=== PATIENT | female | born 1940 | race Caucasian/White ===

== ENCOUNTER 2020-07-23 10:26 | Inpatient (IN) ==
[2020-07-23] MEDS ORDERED: SODIUM CHLORIDE 0.9% 1000ML 1,000 ML IV STA (10:34)
[2020-07-23] MEDS ORDERED: MoRPHine SULFATE 2 MG/ML CARP IV STA (10:34)
[2020-07-23] MEDS ORDERED: ONDANSETRON INJ 2 MG/ML 2 ML VIAL IV STA (10:34)
--- NOTE | 2020-07-23 11:12 | Emergency Department Note ---
History of Present Illness General Chief complaint: Fall Time Seen by Provider: 07/23/20 10:26 Source: patient and EMS Mode of arrival: EMS Limitations: other (She is very hard of hearing but answers questions appropriately) History of Present Illness Maximum Pain Intensity: 6 This patient comes in after falling on Thursday and. She lives independently alone and her son found her today. She is not sure why she fell she is complain of left hip pain. She does not think she hit her head. No chest pain shortness of breath or cough. No urinary symptoms. No fever or chills. She has not seen a doctor in many years and is on no medications. Home Medications Medication Instructions Recorded Confirmed Type No Known Home Medications 07/23/20 07/23/20 History Allergies Allergy/AdvReac Type Severity Reaction Status Date / Time No Known Allergies Allergy Unverified 07/23/20 11:32 Past Med/Surg History Medical History Anxiety Depression Hypertension Surgical History H/O: hysterectomy History of removal of both ovaries Social History Smoking Status: Never smoker Feels Safe at Home: Yes Immunizations: Past medical historyhistory of hypertension. She is on no m edications Social history-lives independently. does not smoke Review of Systems A total of 10 systems reviewed and were otherwise negative Physical Exam Vital Signs Vital Signs - 24 hr 07/23/20 10:43 07/23/20 11:49 07/23/20 11:50 Temperature 36.9 C Temperature Source Oral Pulse Rate 105 H 100 H Pulse Rate [Left Finger] 100 H Pulse Rhythm Regular Pulse Rhythm [Left Finger] Regular Pulse Strength [Left Finger] Normal Respiratory Rate 18 18 18 Respiratory Effort / Characteristics Non-Labored Spontaneous Non-Labored Respiratory Depth Normal Normal Respiratory Pattern Regular Blood Pressure 156/112 H Blood Pressure [Right Arm] 148/76 H Blood Pressure Mean 126 Blood Pressure Mean [Right Arm] 100 Blood Pressure Position [Right Arm] Lying Pulse Oximetry 96 97 97 Oxygen Delivery Method Room Air Room Air Room Air Sepsis Recent Fever Within 48 Hours No Sepsis New/Unexplained Change in Mental Status No Sepsis Action Taken by Nursing No Action Required 07/23/20 13:00 07/23/20 14:19 Temperature Temperature Source Pulse Rate Pulse Rate [Left Finger] 98 H 93 H Pulse Rhythm Pulse Rhythm [Left Finger] Regular Regular Pulse Strength [Left Finger] Normal Respiratory Rate 13 14 Respiratory Effort / Characteristics Non-Labored Respiratory Depth Normal Normal Respiratory Pattern Blood Pressure Blood Pressure [Right Arm] 148/66 H Blood Pressure Mean Blood Pressure Mean [Right Arm] 93 Blood Pressure Position [Right Arm] Pulse Oximetry 97 97 Oxygen Delivery Method Room Air Room Air Sepsis Recent Fever Within 48 Hours Sepsis New/Unexplained Change in Mental Status Sepsis Action Taken by Nursing General: Well developed well nourished older female hard of hearing but appears in no acute distress, breathing comfortably on room air. Normal speech HEENT: Normal cephalic atraumatic. Pupils are equal round and reactive to light. Extraocular movements are intact. Oropharynx is pink with moist mucous membranes. No swelling of the mouth lips or tongue. Neck: Supple with a midline trachea. No meningeal signs or stiffness, no JVD or bruits. No Stridor. Chest: Clear to auscultation bilaterally. No wheezes or rhonchi. No increased work of breathing. Heart: Regular rate and rhythm without murmurs or gallops. Abdomen: Soft nontender, nondistended without rebound guarding or rigidity. Extremities: No cyanosis clubbing or edema. No calf tenderness or assymetry. The left hip is very tender with any movement and there may be slight shortening of the lower extremity. Spine/Back. Non tender to palpation. No CVA tenderness Skin: Good turgor without rashes. Neurologic exam: Cranial nerves two through 12 are intact. Motor and sensation are intact and symmetrical throughout. Course Administered Medications Discontinued Medications Sodium Chloride (Nss 1000ml) 1,000 mls @ 999 mls/hr IV .Q1H1M STA Stop: 07/23/20 11:34 Last Infusion: 07/23/20 12:36 Dose: 0 mls/hr Documented by: [id number] Admin: 07/23/20 11:13 Dose: 999 mls/hr Documented by: [id number] Morphine Sulfate (Morphine Sulfate 2 Mg/Ml Carp) 2 mg IV NOW STA Stop: 07/23/20 10:35 Last Admin: 07/23/20 11:13 Dose: 2 mg Documented by: [id number] Ondansetron HCl (Ondansetron Inj 2 Mg/Ml 2 Ml Vial) 4 mg IV NOW STA Stop: 07/23/20 10:35 Last Admin: 07/23/20 11:13 Dose: 4 mg Documented by: [id number] Medical Decision Making Differential Diagnosis Hip fracture, hip dislocation, contusion, arrhythmia, sepsis, UTI, rhabdo, elec trolyte or metabolic abnormality, dehydration, CVA, trauma Medical Records Attestation: I reviewed the patient's medical records. Home Medications Current Medication List: was personally reviewed by me Laboratory Data Attestation: I reviewed the patient's lab results. Result diagrams: 07/23/20 11:26 07/23/20 11:26 Lab Results 07/23/20 07/23/20 07/23/20 Range/Units 10:57 11:26 11:26 WBC 11.41 H (4.8-10.8) K/uL RBC 4.52 (4.2-5.4) M/uL Hgb 13.8 (12.0-16.0) g/dL Hct 39.5 (37-47) % MCV 87.4 (80-100) fL MCH 30.5 (25-34) pg MCHC 34.9 (32-36) g/dL RDW Std Deviation 42.5 (36.4-46.3) fL RDW Coeff of Praveen 13.3 (11.5-14.5) % Plt Count 169 (130-400) K/uL MPV 10.5 H (7.4-10.4) fL Immature Gran % (Auto) 0.2 % Neut % (Auto) 84.6 % Lymph % (Auto) 8.2 % Luna % (Auto) 6.7 % Eos % (Auto) 0.2 % Baso % (Auto) 0.1 % Neut # (Auto) 9.67 H (1.4-6.5) K/uL Lymph # (Auto) 0.93 L (1.2-3.4) K/uL Luna # (Auto) 0.76 H (0.11-0.59) K/uL Eos # (Auto) 0.02 (0-0.5) K/uL Baso # (Auto) 0.01 (0-0.2) K/uL Immature Gran # (Auto) 0.02 (0.00-0.02) K/uL Sodium 142 (136-145) mmol/L Potassium 4.2 (3.5-5.1) mmol/L Chloride 110 H (98-107) mmol/L Carbon Dioxide 26 (21-32) mmol/L Anion Gap 6.0 (3-11) BUN 59 H (7-18) mg/dl Creatinine 1.38 H (0.6-1.2) mg/dl Est Cr Clr Drug Dosing Not Reportable Est GFR ( Amer) 41.2 Est GFR (Non-Af Amer) 35.5 BUN/Creatinine Ratio 42.6 H (10-20) Glucose 110 H (70-99) mg/dl Calcium 8.6 (8.5-10.1) mg/dl Total Bilirubin 0.7 (0.2-1) mg/dl AST 230 H (15-37) U/L ALT 77 (12-78) U/L Alkaline Phosphatase 89 (45-117) U/L Total Creatine Kinase 7302 H (26-192) U/L CK-MB (CK-2) 87.5 H (0.5-3.6) ng/ml CK/CKMB % Calc 1.2 (0-3.0) Troponin I 0.077 H* (0-0.045) ng/ml Total Protein 6.5 (6.4-8.2) gm/dl Albumin 3.0 L (3.4-5.0) gm/dl Globulin 3.5 (2.5-4.0) gm/dl Albumin/Globulin Ratio 0.9 (0.9-2) Lipase 147 (73-393) U/L Urine Color [place] Urine Appearance Cloudy A (Clear) Urine pH 5.5 (4.5-7.5) Ur Specific [place] 1.020 (1.000-1.030) Urine Protein 1+ H (Negative) Urine Glucose (UA) Negative (Negative) Urine Ketones 1+ H (Negative) Urine Blood 3+ H (Negative) Urine Nitrite Negative (Negative) Urine Bilirubin Negative (Negative) Urine Urobilinogen Negative (Negative) Ur Leukocyte Esterase 1+ H (Negative) Urine WBC (Auto) 10-30 H (0-5) /hpf Urine RBC (Auto) 0-4 (0-4) /hpf U Hyaline Cast (Auto) 0 (0-5) /lpf U Epithel Cells (Auto) 5-10 H (0-5) /lpf Urine Bacteria (Auto) 4+ H (Negative) COVID-19 Eval Order SARS-CoV-2, RNA, NAAT (NEGATIVE) 07/23/20 07/23/20 Range/Units 14:10 14:10 WBC (4.8-10.8) K/uL RBC (4.2-5.4) M/uL Hgb (12.0-16.0) g/dL Hct (37-47) % MCV (80-100) fL MCH (25-34) pg MCHC (32-36) g/dL RDW Std Deviation (36.4-46.3) fL RDW Coeff of Praveen (11.5-14.5) % Plt Count (130-400) K/uL MPV (7.4-10.4) fL Immature Gran % (Auto) % Neut % (Auto) % Lymph % (Auto) % Luna % (Auto) % Eos % (Auto) % Baso % (Auto) % Neut # (Auto) (1.4-6.5) K/uL Lymph # (Auto) (1.2-3.4) K/uL Luna # (Auto) (0.11-0.59) K/uL Eos # (Auto) (0-0.5) K/uL Baso # (Auto) (0-0.2) K/uL Immature Gran # (Auto) (0.00-0.02) K/uL Sodium (136-145) mmol/L Potassium (3.5-5.1) mmol/L Chloride (98-107) mmol/L Carbon Dioxide (21-32) mmol/L Anion Gap (3-11) BUN (7-18) mg/dl Creatinine (0.6-1.2) mg/dl Est Cr Clr Drug Dosing Est GFR ( Amer) Est GFR (Non-Af Amer) BUN/Creatinine Ratio (10-20) Glucose (70-99) mg/dl Calcium (8.5-10.1) mg/dl Total Bilirubin (0.2-1) mg/dl AST (15-37) U/L ALT (12-78) U/L Alkaline Phosphatase (45-117) U/L Total Creatine Kinase (26-192) U/L CK-MB (CK-2) (0.5-3.6) ng/ml CK/CKMB % Calc (0-3.0) Troponin I (0-0.045) ng/ml Total Protein (6.4-8.2) gm/dl Albumin (3.4-5.0) gm/dl Globulin (2.5-4.0) gm/dl Albumin/Globulin Ratio (0.9-2) Lipase (73-393) U/L Urine Color Urine Appearance (Clear) Urine pH (4.5-7.5) Ur Specific [place] (1.000-1.030) Urine Protein (Negative) Urine Glucose (UA) (Negative) Urine Ketones (Negative) Urine Blood (Negative) Urine Nitrite (Negative) Urine Bilirubin (Negative) Urine Urobilinogen (Negative) Ur Leukocyte Esterase (Negative) Urine WBC (Auto) (0-5) /hpf Urine RBC (Auto) (0-4) /hpf U Hyaline Cast (Auto) (0-5) /lpf U Epithel Cells (Auto) (0-5) /lpf Urine Bacteria (Auto) (Negative) [facility], RNA, NAAT NEGATIVE (NEGATIVE) Imaging Data Attestation: I personally reviewed and interpreted this imaging study as follows: My Impression: Left hip : There is an impacted subcapital left hip fracture Chest x-rayno acute infiltrate, failure, pneumothorax seen Radiologist's Impression: SINGLE VIEW PELVIS; 2 VIEWS LEFT HIP CLINICAL HISTORY: Fall. Left hip injury. FINDINGS: An AP supine view of the pelvis with AP and crosstable lateral views of the left hip are obtained. No prior studies are available for comparison at the time of dictation. The skeletal structures are osteopenic. There is an impacted and mildly displaced subcapital fracture of the left femur. Overlying soft tissue edema is noted. No additional fracture is seen involving the right hip or the bony pelvis. Mild to moderate degenerative joint space narrowing is present in both hips. There is sclerotic change seen in the sacroiliac joints. Phleboliths are noted in the pelvis. IMPRESSION: Impacted subcapital left femoral fracture. SINGLE VIEW CHEST CLINICAL HISTORY: Atypical chest pain. Left hip fracture. FINDINGS: An AP, portable, supine chest radiograph is compared to study dated 02/02/2015. The heart is top normal for projection noting atherosclerotic calcification of the thoracic aorta. The pulmonary vasculature is noncongested. Chronic interstitial thickening is similar to previous. No airspace co nsolidation or large pleural effusion is identified. No pneumothorax is seen. The skeletal structures are osteopenic. The bony thorax is grossly intact. IMPRESSION: No acute cardiopulmonary abnormality. ECG Data Attestation: I personally reviewed and interpreted this ECG as follows: Indication: + weakness Rate (beats per minute): 109 Rhythm: + sinus tachycardia and + other (Poor baseline) ECG Intervals/blocks: + Normal QRS, + Normal QT and + Normal PA ECG [place]: + Normal ECG ST segments: + Nonspecific ST abnormalities ECG Findings: no PACs and no PVCs Comparison ECG Date: no prior available MDM Narrative .This patient comes in as described above. She was placed in room C4. She is here for treatment and evaluation of a mechanical fall she was on the ground g round for a prolonged period of time and therefore is at risk for rhabdo. She is complaining hip pain. IV access was tablet she was given morphine 2 mg IV and Zofran 4 mg IV for pain and nausea management. she was hydrated with IV normal saline. EKG was obtained. she was placed on a hospital monitor. X-rays were obtained of the chest and hip. Urinalysis was also obtained and a Mora catheter was placed, given concern for possible hip fracture and inability to get out of bed. X-ray does confirm a hip fracture on the left. Chest x-ray was unremarkable. EKG shows some sinus tachycardia. Her BUN and creatinine are mildly elevated consistent with dehydration. Potassium is not significantly elevated. Her CK is elevated at just over 7000 and consistent with rhabdomyolysis from falling and laying on the floor. Troponin is mildly elevated which is also probably rhabdo she has no chest pain and EKG does not suggest acute STEMI. I do think she needs to be admitted for further IV hydrat ion. She was given a liter IV normal saline bolus in the ER and I ordered a second liter IV normal saline for hydration and treatment of the rhabdo. She will also need orthopedic consultation and management of her hip fracture as well. I have consulted the [facility] hospitalist and she will be seen in the ER and admitted/observed for these measures Continuous cardiac monitoring: Order was placed in EMR for continuous cardiac monitoring. She was noted to be in sinus tachycardia at a rate of 100. Impression & Plan Closed hip fracture, Fall, Rhabdomyolysis, Acute dehydration Discharge Plan Visit Data Chief Complaint: Fall ED Provider: [facility] Discharge Problem: Closed hip fracture, Fall, Rhabdomyolysis, Acute dehydration Forms Stand Alone Forms: [facility] Prescriptions Prescriptions: No Action No Known Home Medications RF: 0 Discharge Problem: Closed hip fracture Qualifiers: Encounter type: initial encounter Laterality: left Qualified Code(s): S72.002A - Fracture of unspecified part of neck of left femur, initial encounter for closed fracture Fall Qualifiers: Encounter type: initial encounter Qualified Code(s): W19.XXXA - Unspecified fall, initial encounter Rhabdomyolysis Qualifiers: Rhabdomyolysis type: traumatic Encounter type: initial encounter Qualified Code(s): T79.6XXA - Traumatic ischemia of muscle, initial encounter
--- NOTE | 2020-07-23 11:23 | XRay Report ---
SINGLE VIEW CHEST CLINICAL HISTORY: Atypical chest pain. Left hip fracture. FINDINGS: An AP, portable, supine chest radiograph is compared to study dated 02/02/2015. The heart is top normal for projection noting atherosclerotic calcification of the thoracic aorta. The pulmonary vasculature is noncongested. Chronic interstitial thickening is similar to previous. No airspace cons olidation or large pleural effusion is identified. No pneumothorax is seen. The skeletal structures a re osteopenic. The bony thorax is grossly intact. IMPRESSION: No acute cardiopulmonary abnormality. ACT 112: Negative or not required by law. Electronically signed by: Pradip Duran M.D. 07/23/2020 11:22 AM
--- NOTE | 2020-07-23 11:24 | XRay Report ---
SINGLE VIEW PELVIS; 2 VIEWS LEFT HIP CLINICAL HISTORY: Fall. Left hip injury. FINDINGS: An AP supine view of the pelvis with AP and crosstable lateral views of the left hip are ob tained. No prior studies are available for comparison at the time of dictation. The skeletal structur es are osteopenic. There is an impacted and mildly displaced subcapital fracture of the left femur. O verlying soft tissue edema is noted. No additional fracture is seen involving the right hip or the [place] pelvis. Mild to moderate degenerative joint space narrowing is present in both hips. There is scle rotic change seen in the sacroiliac joints. Phleboliths are noted in the pelvis. IMPRESSION: Impacted subcapital left femoral fracture. Electronically signed by: Pradip Duran M.D. 07/23/2020 11:23 AM
[2020-07-23 11:26] LABS: Appearance Urine Cloudy (Clear); Bacteria Urine Automated 4+ (Negative); Bilirubin Urine Negative (Negative); Blood Urine 3+ (Negative); Color Urine Orange; Glucose Urine UA Negative (Negative); Ketones Urine 1+ (Negative); Leukocyte Esterase Urine 1+ (Negative); Nitrite Urine Negative (Negative); Protein Urine 1+ (Negative); Urobilinogen Urine Negative (Negative); pH Urine 5.5 (4.5-7.5)
[2020-07-23 11:39] LABS: Basophils # (auto) 0.01 K/uL (0-0.2); Basophils % (auto) 0.1 %; Eosinophils # (auto) 0.02 K/uL (0-0.5); Eosinophils % (auto) 0.2 %; Hematocrit (blood only) 39.5 % (37-47); Hemoglobin 13.8 g/dL (12.0-16.0); Immature Granulocytes # (auto) 0.02 K/uL (0.00-0.02); Immature Granulocytes % (auto) 0.2 %; Lymphocytes # (auto) 0.93 K/uL (1.2-3.4); Lymphocytes % (auto) 8.2 %; Mean Corpuscular Hemoglobin 30.5 pg (25-34); Mean Corpuscular Hgb Conc 34.9 g/dL (32-36); Mean Corpuscular Volume 87.4 fL (80-100); Mean Platelet Volume 10.5 fL (7.4-10.4); Monocytes # (auto) 0.76 K/uL (0.11-0.59); Monocytes % (auto) 6.7 %; Neutrophils # (auto) 9.67 K/uL (1.4-6.5); Neutrophils % (auto) 84.6 %; Platelet Count 169 K/uL (130-400); RDW Coefficient of Variation 13.3 % (11.5-14.5); RDW Standard Deviation 42.5 fL (36.4-46.3); Red Blood Count 4.52 M/uL (4.2-5.4); White Blood Count 11.41 K/uL (4.8-10.8)
[2020-07-23 11:47] LABS: RBC Urine Automated 0-4 /hpf (0-4)
[2020-07-23 11:48] LABS: Cast Urine Automated 0 /lpf (0-5)
[2020-07-23 11:57] LABS: Alanine Aminotransferase 77 U/L (12-78); Aspartate Aminotransferase 230 U/L (15-37); BUN Creatinine Ratio 42.6 (10-20); Blood Urea Nitrogen 59 mg/dl (7-18); Calcium 8.6 mg/dl (8.5-10.1); Carbon Dioxide 26 mmol/L (21-32); Chloride 110 mmol/L (98-107); Est GFR (African American) 41.2; Est GFR (Non-African American) 35.5; Glucose 110 mg/dl (70-99); Lipase 147 U/L (73-393); Potassium 4.2 mmol/L (3.5-5.1); Sodium 142 mmol/L (136-145)
[2020-07-23 12:50] LABS: Albumin Globulin Ratio 0.9 (0.9-2); Alkaline Phosphatase 89 U/L (45-117); Bilirubin,Total 0.7 mg/dl (0.2-1); Creatine Kinase 7302 U/L (26-192); Creatine Kinase MB 87.5 ng/ml (0.5-3.6); Globulin 3.5 gm/dl (2.5-4.0); Total Protein 6.5 gm/dl (6.4-8.2); Troponin I 0.077 ng/ml (0-0.045)
[2020-07-23] MEDS ORDERED: SODIUM CHLORIDE 0.9% 1000ML 1,000 ML IV ONE (13:14)
--- NOTE | 2020-07-23 13:28 | History & Physical Report ---
Date of Service July 23, 2020 Assessment & Plan (1) Pre-op evaluation: 80 yo F with no active cardiac conditions and good functional capacity, able to achieve 4-10 METS on average. EKG reveals sinus rhythm and no changes from prior in 2014. She ambulates independently at baseline, and lives alone. Without surgery to fix her hip, this would have a significant negative impact on her life. She does have acute renal failure and nontraumatic rhabdomyolysis from her prolonged time on the floor over the weekend. Would recommend this be resolved/improved prior to surgery (24-48 hrs). Would recommend to move forward with orthopedic surgery as planned with acceptable risk and no further cardiac workup. (2) Closed left hip fracture: 2/2 mechanical fall. Ortho consulted for consideration of surgical fix. Pain control and supportive care. (3) Acute renal failure: In setting of rhabdo and poor PO intake while on the ground for two days. She has clinical dehydration on exam. Cont with rehydration efforts overnight, NSS @ 150cc/hr. BMP in am. Replete eletrolytes as needed. (4) Non-traumatic rhabdomyolysis: Trend CK in am with NSS running. (5) DVT prophylaxis: Lovenox Full code as discussed with her on admission Dispo-uncertain at this time. Wendy Oakley DO [facility] Hospitalist History of Present Illness Chief Complaint: found down at home by son after a fall Primary Care Provider: Guido Smart MD 80 yo F found down on floor by her son today (Thu). The patient reports that she tripped and fell on Thursday. She has fractured her left hip and was not able to get up or call for help; she lives alone and functions independently at baseline. She denies having hit her head. She reports having crawled from the laundry room floor where she fell into the kitchen and this took her all day yesterday to accomplish. She reports pain is manageable in her hip unless she is moving around. She reports that she was taking medication for HTN and depression a few years ago but stopped these secondary to cost. She denies taking any medications at this time. She has no known h/o cardiac disease or h/o stroke. She has no known h/o diabetes and is not taking insulin. She reports showering herself, cleaning her own home including vaccuming and laundry on a regular basis and cooking for herself. She is independent. She denies any issues with chest pain or worsening shortness of breath when performing these tasks. Allergies Allergy/AdvReac Type Severity Reaction Status Date / Time No Known Allergies Allergy Unverified 07/23/20 11:32 Home Medications Medication Instructions Recorded Confirmed Type No Known Home Medications 07/23/20 07/23/20 History Past Med/Surg History Medical History Anxiety Depression Hypertension Surgical History H/O: hysterectomy History of removal of both ovaries Family History Other Family history non-contributory Social History Smoking Status: Never smoker Hx Alcohol Use: No Hx Substance Use: No Preferred Language: Uzbek Communication Ability: Effective Breaker Machine Tender Required: No Beliefs That Will Affect Care: None Current Living Situation: Alone Current Living Situation Comment: son, lives on same property and checks on her Other Information That Helps Us Care for You: No Feels Safe at Home: Yes Safety Concerns: Feels Safe At This Time Assistive Devices: Denture - Upper, Denture - Lower and Glasses Review of Systems Review of Systems: All systems reviewed & are unremarkable except as noted in HPI & below Physical Exam Physical Exam: CONSTITUTIONAL: WNWD, vitals as above, generally well-appearing EYES: EOMI bilaterally, PERRL, normal conjunctivae, no scleral icterus ENT: external ear and nose normal, partial dentures in place, mucous membranes are dry. NECK: trachea midline RESPIRATORY: clear to auscultation bilaterally, no crackles, rales or wheezes, normal respiratory effort CARDIOVASCULAR: regular rate and rhythm, S1 and 2 heard without murmurs, gallops or rubs, no JVD, no peripheral edema GASTROINTESTINAL: soft, nontender, nondistended, no guarding. MUSCULOSKELETAL: she can wiggle her toes, limited leg strength testing 2/2 pain from fracture. UE strength 5/5 throughout. SKIN: warm and dry, no bruising noted. NEUROLOGIC: CN 2-12 grossly intact, no sensory deficit, normal cognition, normal speech, no gross focal deficits. PSYCHIATRIC: alert cooperative and answering all questions appropriately. Results & Data Results & Data ([facility]) Vital Signs (Past 12 Hours) Vital Signs Temp Pulse Pulse Resp BP BP Pulse Ox 07/23/20 11:50 100 H 18 148/76 H 97 07/23/20 11:49 100 H 18 97 07/23/20 10:43 36.9 C 105 H 18 156/112 H 96 Laboratory Results Short CBC 07/23/20 07/23/20 07/23/20 Range/Units 10:57 11:26 11:26 WBC 11.41 H (4.8-10.8) K/uL RBC 4.52 (4.2-5.4) M/uL Hgb 13.8 (12.0-16.0) g/dL Hct 39.5 (37-47) % MCV 87.4 (80-100) fL MCH 30.5 (25-34) pg MCHC 34.9 (32-36) g/dL RDW Std Deviation 42.5 (36.4-46.3) fL RDW Coeff of Praveen 13.3 (11.5-14.5) % Plt Count 169 (130-400) K/uL MPV 10.5 H (7.4-10.4) fL Immature Gran % (Auto) 0.2 % Neut % (Auto) 84.6 % Lymph % (Auto) 8.2 % [place] % (Auto) 6.7 % Eos % (Auto) 0.2 % Baso % (Auto) 0.1 % Neut # (Auto) 9.67 H (1.4-6.5) K/uL Lymph # (Auto) 0.93 L (1.2-3.4) K/uL [place] # (Auto) 0.76 H (0.11-0.59) K/uL Eos # (Auto) 0.02 (0-0.5) K/uL Baso # (Auto) 0.01 (0-0.2) K/uL Immature Gran # (Auto) 0.02 (0.00-0.02) K/uL Sodium 142 (136-145) mmol/L Potassium 4.2 (3.5-5.1) mmol/L Chloride 110 H (98-107) mmol/L Carbon Dioxide 26 (21-32) mmol/L Anion Gap 6.0 (3-11) BUN 59 H (7-18) mg/dl Creatinine 1.38 H (0.6-1.2) mg/dl Est Cr Clr Drug Dosing Not Reportable Est GFR ( Amer) 41.2 Est GFR (Non-Af Amer) 35.5 BUN/Creatinine Ratio 42.6 H (10-20) Glucose 110 H (70-99) mg/dl Calcium 8.6 (8.5-10.1) mg/dl Total Bilirubin 0.7 (0.2-1) mg/dl AST 230 H (15-37) U/L ALT 77 (12-78) U/L Alkaline Phosphatase 89 (45-117) U/L Total Creatine Kinase 7302 H (26-192) U/L CK-MB (CK-2) 87.5 H (0.5-3.6) ng/ml CK/CKMB % Calc 1.2 (0-3.0) Troponin I 0.077 H* (0-0.045) ng/ml Total Protein 6.5 (6.4-8.2) gm/dl Albumin 3.0 L (3.4-5.0) gm/dl Globulin 3.5 (2.5-4.0) gm/dl Albumin/Globulin Ratio 0.9 (0.9-2) Lipase 147 (73-393) U/L Urine Color [place] Urine Appearance Cloudy A (Clear) Urine pH 5.5 (4.5-7.5) Ur Specific [place] 1.020 (1.000-1.030) Urine Protein 1+ H (Negative) Urine Glucose (UA) Negative (Negative) Urine Ketones 1+ H (Negative) Urine Blood 3+ H (Negative) Urine Nitrite Negative (Negative) Urine Bilirubin Negative (Negative) Urine Urobilinogen Negative (Negative) Ur Leukocyte Esterase 1+ H (Negative) Urine WBC (Auto) 10-30 H (0-5) /hpf Urine RBC (Auto) 0-4 (0-4) /hpf U Hyaline Cast (Auto) 0 (0-5) /lpf U Epithel Cells (Auto) 5-10 H (0-5) /lpf Urine Bacteria (Auto) 4+ H (Negative) BMP 07/23/20 11:26 Sodium 142 Potassium 4.2 Chloride 110 H Carbon Dioxide 26 BUN 59 H Creatinine 1.38 H Glucose 110 H Calcium 8.6 Cardiac Enzymes 07/23/20 Range/Units 11:26 Total Creatine Kinase 7302 H (26-192) U/L CK-MB (CK-2) 87.5 H (0.5-3.6) ng/ml Troponin I 0.077 H* (0-0.045) ng/ml Liver Function 07/23/20 Range/Units 11:26 Total Bilirubin 0.7 (0.2-1) mg/dl AST 230 H (15-37) U/L ALT 77 (12-78) U/L Alkaline Phosphatase 89 (45-117) U/L Albumin 3.0 L (3.4-5.0) gm/dl Urine 07/23/20 Range/Units 10:57 Urine Color [place] Urine Appearance Cloudy A (Clear) Urine pH 5.5 (4.5-7.5) Ur Specific [place] 1.020 (1.000-1.030) Urine Protein 1+ H (Negative) Urine Glucose (UA) Negative (Negative) Diagnostic Findings [facility], [id number] XRay Report Patient: JOVANNA ODOM Date: 07/23/20MR#: [id number]: [address]Acct ID:[id number]: [id number] [facility] Date: 1940[facility] Zip: [place], [place] [address]Gri: 80Location: EDSex: FRoom/Bed:Att Phy:Diagnosis: FALLPri Phy: KATHERINENOService Date: 07/23/20Fa Phy:Interpreting Phy: Pradip Duran MDAdmit Phy: Ordering Phy: Bay Barrow M.D. cc: ~ SINGLE VIEW PELVIS; 2 VIEWS LEFT HIP CLINICAL HISTORY: Fall. Left hip injury. FINDINGS: An AP supine view of the pelvis with AP and crosstable lateral views of the left hip are obtained. No prior studies are available for comparison at the time of dictation. The skeletal structures are osteopenic. There is an impacted and mildly displaced subcapital fracture of the left femur. Overlying soft tissue edema is noted. No additional fracture is seen involving the right hip or the bony pelvis. Mild to moderate degenerative joint space narrowing is present in both hips. There is sclerotic change seen in the sacroiliac joints. Phleboliths are noted in the pelvis. IMPRESSION: Impacted subcapital left femoral fracture. Electronically signed by: Pradip Duran M.D. 07/23/2020 11:23 AM Dictated: 07/23/201121Transcribed: 07/23/201121 [facility], [phone] XRay Report Patient: JOVANNA ODOM Date: 07/23/20MR#: [id number]: [address]Acct ID:[id number]: [id number] [facility] Date: 1940[facility] Zip: [place], [place] [address]Sqg: 80Location: EDSex: FRoom/Bed:Att Phy:Diagnosis: FALLPri Phy: PCP,NOService Date: 07/23/20Fa Phy:Interpreting Phy: Pradip Duran MDAdmit Phy: Ordering Phy: Bay Barrow M.D. cc: ~ SINGLE VIEW CHEST CLINICAL HISTORY: Atypical chest pain. Left hip fracture. FINDINGS: An AP, portable, supine chest radiograph is compared to study dated 02/02/2015. The heart is top normal for projection noting atherosclerotic calcification of the thoracic aorta. The pulmonary vasculature is noncongested. Chronic interstitial thickening is similar to previous. No airspace consolidation or large pleural effusion is identified. No pneumothorax is seen. The skeletal structures are osteopenic. The bony thorax is grossly intact. IMPRESSION: No acute cardiopulmonary abnormality. ACT 112: Negative or not required by law. Electronically signed by: Pradip Duran M.D. 07/23/2020 11:22 AM Dictated: 07/23/201120Transcribed: 07/23/201120
[2020-07-23] MEDS ORDERED: NALOXONE HCL 0.4 MG/1 ML VIAL/CARP IV PRN (17:28)
[2020-07-23] MEDS ORDERED: bisacodyL 10 MG SUPP PR PRN (17:28)
[2020-07-23] MEDS ORDERED: ACETAMINOPHEN 325 MG TAB PO PRN (17:28)
[2020-07-23] MEDS ORDERED: POLYETHYLENE (MIRALAX) 17 GM PACK PO PRN (17:28)
[2020-07-23] MEDS ORDERED: MAGNESIUM HYDROXIDE SUSP 30 ML UDC PO PRN (17:28)
[2020-07-23] MEDS ORDERED: traMADol HCL 50 MG TABLET PO PRN (17:28)
[2020-07-23] MEDS: oxyCODONE HCL IR 5 MG TAB (IMMEDIATE RELEASE) PO PRN (18:17)
[2020-07-23] MEDS: SODIUM CHLORIDE 0.9% 1000ML 1,000 ML IV SCH (18:18)
--- NOTE | 2020-07-23 20:04 | Anesthesiology Consultation ---
Date of Service July 23, 2020 Assessment & Plan (1) Encounter for pre-operative examination: Chart Review Chart Review: Acceptable Risk for Surgery and Patient NOT seen in Pre Admission Testing Trend troponins. Consults Requested none History Height/Weight Height: 5 ft 4 in Weight: 64.8 kg Allergies Allergy/AdvReac Type Severity Reaction Status Date / Time No Known Allergies Allergy Unverified 07/23/20 11:32 Medications Home Medications Medication Instructions Recorded Confirmed Last Taken No Known Home Medications 07/23/20 07/23/20 Unknown Active Medications Generic Name Dose Route Start Last Admin Trade Name Freq PRN Reason Stop Dose Admin Sodium Chloride 1,000 mls @ 150 mls/hr 07/23/20 17:28 07/23/20 18:18 Nss 1000ml IV 07/24/20 06:47 150 mls/hr .[id number] RUSS Administration Oxycodone HCl 5 mg 07/23/20 17:28 07/23/20 18:17 Oxycodone Hcl Ir 5 Mg Tab (Immediate Release) PO 08/06/20 17:27 5 mg Q4H PRN Administration SEVERE Pain (7, 8, 9, 10) Past Medical History Medical History Anxiety Depression Hypertension Per ER physician 07/23/2020: Troponin is mildly elevated which is also probably rhabdo she has no chest pain and EKG does not suggest acute STEMI. Past Surgical History Surgical History H/O: hysterectomy History of removal of both ovaries Social History Smoking Status: Never smoker Hx Alcohol Use: No Hx Substance Use: No Physical Exam Vital Signs Last Vital Signs Temp 36.6 C 07/23/20 19:00 Pulse 110 H 07/23/20 19:00 Resp 20 07/23/20 19:00 BP 130/75 07/23/20 19:00 Pulse Ox 99 07/23/20 19:00 Testing Laboratory Results 07/23/20 11:26 07/23/20 11:26 Urine Color [place] 07/23/20 10:57 Urine Appearance Cloudy (Clear) A 07/23/20 10:57 Urine pH 5.5 (4.5-7.5) 07/23/20 10:57 Ur Specific [place] 1.020 (1.000-1.030) 07/23/20 10:57 Urine Protein 1+ (Negative) H 07/23/20 10:57 Urine Glucose (UA) Negative (Negative) 07/23/20 10:57 Urine Ketones 1+ (Negative) H 07/23/20 10:57 Urine Nitrite Negative (Negative) 07/23/20 10:57 Ur Leukocyte Esterase 1+ (Negative) H 07/23/20 10:57 Urine WBC (Auto) 10-30 /hpf (0-5) H 07/23/20 10:57 Urine RBC (Auto) 0-4 /hpf (0-4) 07/23/20 10:57 U Hyaline Cast (Auto) 0 /lpf (0-5) 07/23/20 10:57 U Epithel Cells (Auto) 5-10 /lpf (0-5) H 07/23/20 10:57 Urine Bacteria (Auto) 4+ (Negative) H 07/23/20 10:57 covid neg 07/23/20. Laboratory Tests 07/23/20 11:26 Troponin I 0.077 H* Electrocardiogram Date: 07/23/20 ST. HR 109. Occasional PVC's. Biatrial enlargement. LAD. Cannot r/o anterior infarct, age undetermined. ST and T wave abnormality, consider lateral ischemia.
[2020-07-23] MEDS: DOCUSATE SODIUM/SENNA 50/8.6MG TAB PO SCH (20:55)
[2020-07-24] MEDS: SODIUM CHLORIDE 0.9% 1000ML 1,000 ML IV SCH ×2 (00:45→10:15)
[2020-07-24] MEDS ORDERED: ceFAZolin 2000MG 2,000 MG/15 ML SYR IV SCH (06:00)
[2020-07-24 06:16] LABS: Hematocrit (blood only) 36.2 % (37-47); Hemoglobin 12.2 g/dL (12.0-16.0); Mean Corpuscular Hemoglobin 29.8 pg (25-34); Mean Corpuscular Hgb Conc 33.7 g/dL (32-36); Mean Corpuscular Volume 88.5 fL (80-100); Mean Platelet Volume 10.6 fL (7.4-10.4); Platelet Count 161 K/uL (130-400); RDW Coefficient of Variation 13.4 % (11.5-14.5); Red Blood Count 4.09 M/uL (4.2-5.4)
--- NOTE | 2020-07-24 06:28 | Electrocardiogram Report ---
Test Reason : Blood Pressure : / mmHG Vent. Rate : 102 BPM Atrial Rate : 102 BPM P-R Int : 132 ms QRS Dur : 058 ms QT Int : 362 ms P-R-T Axes : 064 -30 160 degrees QTc Int : 472 ms Poor data quality, interpretation may be adversely affected Sinus tachycardia Biatrial enlargement Left axis deviation Low voltage QRS Cannot rule out Anterior infarct , age undetermined Abnormal ECG When compared with ECG of 04-FEB-2015 13:09, Vent. rate has increased by 30 bpm T wave inversion now evident in Anterior leads QT has lengthened Confirmed by Isiah Presley ([id number]) on 07/24/2020 6:28:05 AM Referred By: REFERRED SELF Confirmed By:Isiah Presley
[2020-07-24 06:29] LABS: Prothrombin Time 9.7 Seconds (9.0-12.0)
[2020-07-24 06:51] LABS: BUN Creatinine Ratio 50.5 (10-20); Calcium 8.3 mg/dl (8.5-10.1); Creatinine Clr Calc Pharmacy 46.2 ml/min; Est GFR (African American) 78.4; Est GFR (Non-African American) 67.6; Potassium 3.6 mmol/L (3.5-5.1)
[2020-07-24 07:04] LABS: Troponin I 0.079 ng/ml (0-0.045)
[2020-07-24] MEDS: ENOXAPARIN INJ 40 MG/0.4 ML SYR SQ SCH (07:17)
--- NOTE | 2020-07-24 10:08 | XRay Report ---
XR femur LT 2V routine CLINICAL HISTORY: Left hip fracture. Left leg pain. COMPARISON STUDY: Left hip 07/23/2020. FINDINGS: Redemonstration of the slightly displaced subcapital left femoral neck fracture. This demon strates up to 7 mm of superior displacement. No dislocation. The patient has pelvic bones are intact. No fractures within the mid to distal left femur. IMPRESSION: 1. Redemonstration of the slightly displaced subcapital left femoral neck fracture. 2. No fractures within the mid to distal left femur. ACT 112: Negative or not required by law. Electronically signed by: Ramu Hyman M.D. 07/24/2020 10:06 AM
--- NOTE | 2020-07-24 11:16 | Orthopedic Consultation ---
Date of Consultation July 24, 2020 Assessment & Plan (1) Closed hip fracture: Left displaced subcapital hip fracture. Patient will require a bipolar hemiarthroplasty. Await further input and clearances from cardiology and internal medicine. There is a slight possibility of doing her surgery late this afternoon however most likely she may need to be done tomorrow pending clearance and OR schedule and or physician availability. Thank you for this consult. Supervising Physician Co-Signing Physician Notes Patient seen and examined in preoperative holding, agree with above assessment and plan The patient is a [id number] female with displaced left femoral neck fracture sustained after a fall from standing height. The patient was medically stabilized on 07/24/2020. I indicated the patient for left hip hemiarthroplasty. The patient and son was informed of the risks and benefits of surgery, which include but not limited to infection, bleeding, blood clots, damage to nerves, vessels, bone and soft tissue, dislocation, leg length discrepancy, need for additional surgery and . The patient and son chose to move forward with surgical intervention and informed consent was obtained. History of Present Illness Reason for Consultation: Left displaced subcapital hip fracture Attending Physician: Tiffany Zaldivar MD History of Present Illness Patient is an 80-year-old female who states that she had fallen at home. She had apparently fallen on Thursday but was unable to get to a phone and call for help. Her son apparently found her on Thursday. She states that she ended up catching her foot on the carpet lost her balance and fell to the floor. She had immediate pain in her left hip and groin and was unable to ambulate. She states she was able to crawl short distance to her kitchen but it took quite a while. She was brought to the emergency room and seen by the staff. X-rays were taken and was found that she had a left subcapital hip fracture that was displaced. She was admitted by the hospitalist team and we have been asked to take care of her fracture. She currently denies any loss of consciousness at the time of the fall. She denies any shortness of breath, chest pain, lightheadedness prior to or after the fall. Allergies Allergy/AdvReac Type Severity Reaction Status Date / Time No Known Allergies Allergy Unverified 07/23/20 11:32 Home Medications Medication Instructions Recorded Confirmed Type No Known Home Medications 07/23/20 07/23/20 History Patient History Medical History Anxiety Depression Hypertension Surgical History H/O: hysterectomy History of removal of both ovaries Family History Other Family history non-contributory Social History Smoking Status: Never smoker Hx Alcohol Use: No Hx Substance Use: No Preferred Language: Lithuanian Communication Ability: Effective Animal Health Technician Required: No Beliefs That Will Affect Care: None marital status: / Current Living Situation: Alone Current Living Situation Comment: son, lives on same property and checks on her How many Children do You have: 3 Other Information That Helps Us Care for You: No Feels Safe at Home: Yes Safety Concerns: Feels Safe At This Time Assistive Devices: None Review of Systems Review of Systems: All systems reviewed & are unremarkable except as noted in HPI & below Physical Exam Physical Exam: Patient is an 80-year-old female who appears her stated age. She is alert and oriented to person and place and is in no acute distress. Pleasant and cooperative. Examination of the left lower extremity shows it to be shortened and internally rotated compared to the right lower extremity. Range of motion of the left hip and knee are deferred secondary to left hip fracture. She has good range of motion of her left ankle and toes. She is tender on palpation at the left lateral hip. No overt bruising or abrasions are noted. Right lower extremity is within normal limits with range of motion at the hip, knee, and ankle. Considering the upper extremities, she states that she has some shoulder discomfort today secondary to laying in bed so long. She denies any new pain in her shoulders after the fall. She is able to take her upper extremities through range of motion's without difficulty. She denies any pain at the elbows or wrists. She denies pain on palpation of the cervical spine. Denies any pain in the thoracic and/or lumbar spine. There is no gross motor or sensory loss seen at this time. Distal pulses are equal bilaterally of the upper lower extremities. Results & Data ([facility]) Vital Signs (Past 12 Hours) Vital Signs Temp Pulse Pulse Resp BP Pulse Ox 07/24/20 07:38 37.0 C 86 18 124/70 92 07/24/20 03:21 37.0 C 95 H 16 110/65 94 07/24/20 01:00 95 H Laboratory Results Laboratory Results WBC 7.60 K/uL (4.8-10.8) 07/24/20 05:47 RBC 4.09 M/uL (4.2-5.4) L 07/24/20 05:47 Hgb 12.2 g/dL (12.0-16.0) 07/24/20 05:47 Hct 36.2 % (37-47) L 07/24/20 05:47 MCV 88.5 fL (80-100) 07/24/20 05:47 MCH 29.8 pg (25-34) 07/24/20 05:47 MCHC 33.7 g/dL (32-36) 07/24/20 05:47 RDW Std Deviation 44.0 fL (36.4-46.3) 07/24/20 05:47 RDW Coeff of Praveen 13.4 % (11.5-14.5) 07/24/20 05:47 Plt Count 161 K/uL (130-400) 07/24/20 05:47 MPV 10.6 fL (7.4-10.4) H 07/24/20 05:47 Immature Gran % (Auto) 0.2 % 07/23/20 11:26 Neut % (Auto) 84.6 % 07/23/20 11:26 Lymph % (Auto) 8.2 % 07/23/20 11:26 [place] % (Auto) 6.7 % 07/23/20 11:26 Eos % (Auto) 0.2 % 07/23/20 11:26 Baso % (Auto) 0.1 % 07/23/20 11:26 Neut # (Auto) 9.67 K/uL (1.4-6.5) H 07/23/20 11:26 Lymph # (Auto) 0.93 K/uL (1.2-3.4) L 07/23/20 11:26 [place] # (Auto) 0.76 K/uL (0.11-0.59) H 07/23/20 11:26 Eos # (Auto) 0.02 K/uL (0-0.5) 07/23/20 11:26 Baso # (Auto) 0.01 K/uL (0-0.2) 07/23/20 11:26 Immature Gran # (Auto) 0.02 K/uL (0.00-0.02) 07/23/20 11:26 PT 9.7 Seconds (9.0-12.0) 07/24/20 05:47 INR 1.0 (0.9-1.1) 07/24/20 05:47 Sodium 143 mmol/L (136-145) 07/24/20 05:47 Potassium 3.6 mmol/L (3.5-5.1) 07/24/20 05:47 Chloride 112 mmol/L (98-107) H 07/24/20 05:47 Carbon Dioxide 25 mmol/L (21-32) 07/24/20 05:47 Anion Gap 5.0 (3-11) 07/24/20 05:47 BUN 41 mg/dl (7-18) H 07/24/20 05:47 Creatinine 0.81 mg/dl (0.6-1.2) D 07/24/20 05:47 Est Cr Clr Drug Dosing 46.2 ml/min 07/24/20 05:47 Est GFR ( Amer) 78.4 07/24/20 05:47 Est GFR (Non-Af Amer) 67.6 07/24/20 05:47 BUN/Creatinine Ratio 50.5 (10-20) H 07/24/20 05:47 Glucose 92 mg/dl (70-99) 07/24/20 05:47 Calcium 8.3 mg/dl (8.5-10.1) L 07/24/20 05:47 Total Bilirubin 0.7 mg/dl (0.2-1) 07/23/20 11:26 AST 230 U/L (15-37) H 07/23/20 11:26 ALT 77 U/L (12-78) 07/23/20 11:26 Alkaline Phosphatase 89 U/L (45-117) 07/23/20 11:26 Total Creatine Kinase 4596 U/L (26-192) H 07/24/20 05:47 CK-MB (CK-2) 87.5 ng/ml (0.5-3.6) H 07/23/20 11:26 CK/CKMB % Calc 1.2 (0-3.0) 07/23/20 11:26 Troponin I 0.079 ng/ml (0-0.045) H* 07/24/20 05:47 Total Protein 6.5 gm/dl (6.4-8.2) 07/23/20 11:26 Albumin 3.0 gm/dl (3.4-5.0) L 07/23/20 11:26 Globulin 3.5 gm/dl (2.5-4.0) 07/23/20 11: Albumin/Globulin Ratio 0.9 (0.9-2) 07/23/20 11:26 Lipase 147 U/L (73-393) 07/23/20 11:26 Urine Color [place] 07/23/20 10:57 Urine Appearance Cloudy (Clear) A 07/23/20 10:57 Urine pH 5.5 (4.5-7.5) 07/23/20 10:57 Ur Specific [place] 1.020 (1.000-1.030) 07/23/20 10:57 Urine Protein 1+ (Negative) H 07/23/20 10:57 Urine Glucose (UA) Negative (Negative) 07/23/20 10:57 Urine Ketones 1+ (Negative) H 07/23/20 10:57 Urine Blood 3+ (Negative) H 07/23/20 10:57 Urine Nitrite Negative (Negative) 07/23/20 10:57 Urine Bilirubin Negative (Negative) 07/23/20 10:57 Urine Urobilinogen Negative (Negative) 07/23/20 10:57 Ur Leukocyte Esterase 1+ (Negative) H 07/23/20 10:57 Urine WBC (Auto) 10-30 /hpf (0-5) H 07/23/20 10:57 Urine RBC (Auto) 0-4 /hpf (0-4) 07/23/20 10:57 U Hyaline Cast (Auto) 0 /lpf (0-5) 07/23/20 10:57 U Epithel Cells (Auto) 5-10 /lpf (0-5) H 07/23/20 10:57 Urine Bacteria (Auto) 4+ (Negative) H 07/23/20 10:57 COVID-19 Eval Order Covid19 IDNow [facility] 07/23/20 14:10 SARS-CoV-2, RNA, NAAT NEGATIVE (NEGATIVE) 07/23/20 14:10 Blood Type A Positive 07/24/20 05:47 Antibody Screen NEGATIVE 07/24/20 05:47 Diagnostic Findings Patient: JOVANNA ODOM Date: 07/23/20MR#: [id number]: [address]Acct ID:[id number]: [address]: 1940[facility] Zip: [place], [place] [address]Fbp: 80Location: 2WSex: FRoom/Bed: [id number] Phy: Tiffany Zaldivar, MDDiagnosis: LEFT HIP FRACTURE, NONTRAUMATIC RHABDMYOLYSISPri Phy: Guido Smart MDService Date: 07/24/20Fam Phy:Interpreting Phy: Ramu Hyman MDAdmit Phy: Wendy Oakley DO Ordering Phy: Casper Giordano PA-C cc: ~ XR femur LT 2V routine CLINICAL HISTORY: Left hip fracture. Left leg pain. COMPARISON STUDY: Left hip 07/23/2020. FINDINGS: Redemonstration of the slightly displaced subcapital left femoral neck fracture. This demonstrates up to 7 mm of superior displacement. No dislocation. The patient has pelvic bones are intact. No fractures within the mid to distal left femur. IMPRESSION: 1. Redemonstration of the slightly displaced subcapital left femoral neck fracture. 2. No fractures within the mid to distal left femur. (1) Closed hip fracture Encounter type: initial encounter Laterality: left Qualified Code(s): S72.002A - Fracture of unspecified part of neck of left femur, initial encounter for closed fracture
--- NOTE | 2020-07-24 14:35 | Hospitalist Progress Note ---
Date of Service July 24, 2020 Assessment & Plan (1) Pre-op evaluation: EKG with sinus rhythm. Patient lives alone and is independent. Okay to proceed with surgery given benefits outweigh risks. (2) Closed left hip fracture: 2/2 mechanical fall. Appreciate orthopedics input. Remains NPO. Plan to go to the OR today. We will continue with maintenance IV fluids. Continue pain control. Work with PT/OT post-operatively. (3) Acute renal failure: CK of 7300 on admission. Patient was on the floor for significant time. CK down to 4500. Will continue with maintenance IV fluids. Continue to trend CK level. (4) Non-traumatic rhabdomyolysis: improved, continue to trend daily ck (5) DVT prophylaxis: Lovenox Full code Admission and Anticipated Discharge Date Admission Date: July 23, 2020 Subjective Doing okay this morning. Her primary complaint is a pain. Denies any chest pain or shortness of breath. Denies any abdominal pain. No nausea or vomiting. Remains NPO. Review of Systems Review of Systems: All systems reviewed & are unremarkable except as noted in HPI & below Physical Exam Physical Exam: General: A&Ox3. HENT: NCAT, MMM, EOMI Eyes: PERRLA Neck: Supple, normal range of motion CVS: normal rate and rhythm Resp: b/l good breath sounds Abdomen: Soft, ND/NT, +BS Extremities: Left lower extremity is externally rotated Neuro: face symmetric, no focal deficit, LLE weakness apprecaited Skin: warm and dry, no rashes/lesions/errythema Results & Data Results & Data ([facility]) Vital Signs (Past 12 Hours) Vital Signs Temp Pulse Resp BP Pulse Ox 07/24/20 11:04 37.1 C 88 20 121/72 94 07/24/20 07:38 37.0 C 86 18 124/70 92 07/24/20 03:21 37.0 C 95 H 16 110/65 94
[2020-07-24] MEDS ORDERED: MIDAZOLAM HCL 1 MG/ML 2ML VIAL ONE (15:45)
[2020-07-24] MEDS ORDERED: LIDOCAINE HCL 2% 2 ML VIAL/AMP(20MG/ML) INFIL ONE (15:45)
[2020-07-24] MEDS ORDERED: PROPOFOL IV EMULSION 10 MG/ML 20 ML VIAL IV ONE (15:45)
[2020-07-24] MEDS ORDERED: ONDANSETRON INJ 2 MG/ML 2 ML VIAL ONE ×2 (15:45→17:24)
[2020-07-24] MEDS ORDERED: fentaNYL citrate 100 MCG/2 ML VIAL ONE ×2 (15:45→17:24)
[2020-07-24] MEDS ORDERED: ePHEDrine sulfate 50 MG/ML AMP IV PRN (15:52)
[2020-07-24] MEDS ORDERED: fentaNYL citrate 100 MCG/2 ML VIAL IV PRN (15:52)
[2020-07-24] MEDS ORDERED: ATROPINE SULFATE 0.1 MG/ML 10ML SYR IV PRN (15:52)
[2020-07-24] MEDS ORDERED: ONDANSETRON INJ 2 MG/ML 2 ML VIAL IV PRN (15:52)
[2020-07-24] MEDS ORDERED: BUPIVACAINE 0.5 % 5 MG/1 ML PF 10ML VIAL ONE (16:00)
[2020-07-24] MEDS ORDERED: ceFAZolin 2,000 MG/15 ML IV PUSH IV ONE (16:00)
[2020-07-24] MEDS ORDERED: BACITRACIN INJ 50,000 UNIT VIAL ONE (16:01)
[2020-07-24] MEDS ORDERED: ORTHO JOINT ANESTHETIC ONE (16:01)
--- NOTE | 2020-07-24 16:41 | History & Physical Bridge Note ---
Date of Service July 24, 2020 History & Physical Bridge Note I have examined the patient, reviewed the History & Physical and in the interval since the performance of the History & Physical I have noted the following changes of clinical significance: no changes noted
[2020-07-24] MEDS ORDERED: ROPIVACAINE 0.5% HCL/PF 150 MG, BUPIVACAINE 0.75% MPF 20 ML, EPINEPHrine 0.15 MG, dexAM... INFIL SCH (17:00)
[2020-07-24] MEDS ORDERED: ROCURONIUM BROMIDE 10 MG/ML 5 ML VIAL IV ONE (17:24)
[2020-07-24] MEDS ORDERED: DEXAMETHASONE SOD INJ 4 MG/ML VIAL ONE (17:24)
[2020-07-24] MEDS ORDERED: NEOSTIGMINE METHYLSULFATE 5 MG/5 ML SYR ONE (17:51)
[2020-07-24] MEDS ORDERED: hydrALAZINE HCL 20 MG/ML VIAL ONE (17:51)
[2020-07-24] MEDS ORDERED: GLYCOPYRROLATE 0.2 MG/ML VIAL ONE (17:51)
--- NOTE | 2020-07-24 17:58 | Post Operative Brief Note ---
Immediate Post Op Note v1 Date of Surgery July 24, 2020 Pre & Post Diagnosis Operation Date: 07/24/20 09:15 Pre-Op Diagnosis: Left Hip Fracture Post-Op Diagnosis: Left Hip Fracture I identified the patient and participated in the time-out.: Yes Procedure Operation Date: 07/24/20 09:15 Actual Procedures p Left Bipolar Freddie Arthroplasty Hip Prosthesis, Uncemented(Left) - Marco Barnard DO Surgeon Marco Barnard DO Wagon Driller Casper Giordano Estimated Blood Loss 150 Findings Consistent with Post-Op Diagnosis Specimens femoral head Drains Albert Catheter (Patient had albert catheter in place upon arrival to operating room. Draining clear yellow urine throughout case) Anesthesia Type General Complications none Disposition Disposition: Recovery Room Overlapping Procedure I was present for: the critical portions of procedure. I was immediately available: during the entire case. Back up surgeon: was not required during procedure.
--- NOTE | 2020-07-24 18:01 | Operative Report ---
Post Operative Report Pre & Post Diagnosis Operation Date: 07/24/20 09:15 Pre-Op Diagnosis: Left Hip Fracture Post-Op Diagnosis: Left Hip Fracture I identified the patient and participated in the time-out.: Yes Procedure Operation Date: 07/24/20 09:15 Actual Procedures p Left Bipolar Freddie Arthroplasty Hip Prosthesis, Uncemented(Left) - Marco Barnard DO Surgeon Marco Barnard DO Grit Blaster Casper Giordano Estimated Blood Loss 150 Findings Consistent with Post-Op Diagnosis Fluids See anesthesia report Specimens Femoral head Anesthesia Type General Complications none Disposition Disposition: Recovery Room Indications The patient is a 80-year-old female with displaced left femoral neck fracture sustained after a fall from standing height. The patient was medically stabi lized on 07/24/2020. I indicated the patient for left hip hemiarthroplasty. The patient and son was informed of the risks and benefits of surgery, which include but not limited to infection, bleeding, blood clots, damage to nerves, vessels, bone and soft tissue, dislocation, leg length discrepancy, need for additional surgery and . The patient and son chose to move forward with surgical int ervention and informed consent was obtained. Description of Procedure COMPONENTS USED: [employer] Avenir hip system: Femur size 6 high offset, femoral head 28+0 mm, 46 mm Shell. Following induction of adequate general anesthesia, the patient was transferred to the OR table and placed in the lateral decubitus position with right hip down. The left hip was prepped and draped in usual sterile manner. A timeout was performed, patient identified and site noel verified. Appropriate IV antibiotics were given. A posterior lateral incision was made. Subcutaneous tissue was sharply dissected down to the fascial layer. Electro cautery was used for hemostasis. Fascia was incised throughout the length of the wound and the piriformis was identified. A #1 Vicryl suture was used to tag the piriformis. The short external rotators were divided from the posterior aspect of the femur and a capsulotomy was performed. A second #1 Vicryl suture was used to tag the capsule. Next, I turned my attention to the femoral neck fracture. The fracture was relatively high on the calcar and decision was made to proceed with the oscillating saw and create the calcar osteotomy. This bone fragment was removed. Following this, tenaculum and cob elevator was utilized to remove the femoral head. The head was measured on the back table and the 46 mm femoral head was chosen as the size to be used. Next, attention was turned to the acetabulum which was found to have no significant arthritis. All bony debris was removed. Next, attention was then turned to the proximal femur where box osteotome was used to gain access to the femoral canal. A canal finder and power lateralizing reamer were utilized to further open. Sequential raspings were taken up to a size 6, which was sunk completely and trial reduction was carried out and a 28+0 mm femoral head was chosen the size to be used with the 46 bipolar cup. Following a trial reduction, the hip was found to be stable to 45 degrees of internal rotation and 90 degrees of flexion with equal leg lengths. The calcar reamer was utilized to smooth the calcar and the instruments and trial components were removed. The hip was thoroughly irrigated with pulsatile sterile saline solution with bacitracin. The size 6 high offset Avenir stem was carefully impacted into place with appropriate version. The calcar was carefully assessed and found to be intact and without fractures. Following insertion of final stem component another trial reduction was carried out and again and a 28+0 mm femoral head with a 46 mm shell was chosen as the size to be used. The final head and neck was impacted into position and the hip was reduced and stability assess and was found to be stable to 45 degrees of internal rotation and 90 degrees of flexion. A 3-minute Betadine soak was performed at this time. The wound was irrigated with copious amounts of sterile saline solution with bacitracin. Lisbet-incisional soft tissue was injected with the [place] Orthomix which includes a combination of Ropivicaine 0.5% 150mg, Bupivicaine 0.5%/Epinephrine 1:200,000 30ml, Toradol 30mg, Dexamethasone 4mg, Ketamine 10mg, Clonidine 100mcg and NSS 30ml solution. The capsule was repaired using #5 fiberwire sutures through drill holes. Following this, the short external rotators were reapproximated to the posterior aspect of the femur also through drill holes and these were tied. Once again the wound was copiously irrigated with sterile saline solution with bacitracin. Fascia was closed using #1 Vicryl [id number] sutures, subcutaneous tissue was closed using 2-0 vicryl, and skin was closed with mariam. A sterile dry dressing was applied which included Jia incisional VAC. The patient tolerated the procedure well and was taken to recovery room in stable condition. Due to the complex nature of the procedure, the entire surgery was performed with the operational assistance of Casper Giordano PA-C. The hair assistant, under direct supervision, was involved in the actual performance of all aspects of the surgical procedure including patient positioning, hemostasis, tissue retraction, instrument management and wound closure. I attest to the content of the Intraoperative Record and any orders documented therein. Any exceptions are noted below.
[2020-07-24] MEDS ORDERED: NALOXONE HCL 0.4 MG/1 ML VIAL/CARP IV PRN (19:15)
--- NOTE | 2020-07-24 19:18 | XRay Report ---
XR hip LT min 2V CLINICAL HISTORY: Post-Operative implant position COMPARISON: Left femur radiographs performed earlier today. FINDINGS: Alignment of the left hip arthroplasty is anatomic. There is no periprosthetic fracture. T here are no unexpected radiopaque foreign bodies. Skin mariam are present. IMPRESSION: Expected findings following left hip arthroplasty. ACT 112: Negative or not required by law. Electronically signed by: Mejia Joyce M.D. 07/24/2020 7:17 PM
--- NOTE | 2020-07-24 19:33 | Orthopedic Progress Note ---
Date of Service July 24, 2020 Assessment & Plan (1) Closed hip fracture: s/p Left hip hemiarthroplasty -ancef x 24 -DVT ppx: SCDs, TEDs, Lovenox daily -WBAT LLE -PT/OT -PO XR demonstrates a well aligned well fixed prosthesis without fracture/dislocation -am labs Admission and Anticipated Discharge Date Admission Date: July 23, 2020 Subjective Post Operative Progress Note Patient seen in PACU, comfortable, pain well controlled, no acute issues. Patient still waking up from general anesthesia. Review of Systems Review of Systems: All systems reviewed & are unremarkable except as noted in HPI & below Constitutional: as per Subjective / HPI Physical Exam Physical Exam: Limited PE secondary to still waking up from general anesthesia, +2 DP pulse, compartment soft NT, dressing CDI, leg lengths equal. Constitutional: WD/WN, vitals as above Results & Data ([facility]) Vital Signs (Past 12 Hours) Vital Signs Temp Pulse Pulse Pulse Pulse Resp BP 07/24/20 19:15 37.0 C 100 H 18 07/24/20 19:00 101 H 18 07/24/20 18:50 37.1 C 105 H 16 07/24/20 18:40 103 H 18 07/24/20 18:30 97 H 16 07/24/20 18:20 92 H 18 07/24/20 18:18 36.3 C L 93 H 18 07/24/20 16:03 36.7 C 84 18 152/77 H 07/24/20 15:45 90 07/24/20 14:43 36.9 C 89 18 07/24/20 11:04 37.1 C 88 20 07/24/20 07:38 37.0 C 86 18 BP Pulse Ox 07/24/20 19:15 124/71 94 07/24/20 19:00 123/60 94 07/24/20 18:50 121/65 95 07/24/20 18:40 116/60 98 07/24/20 18:30 144/57 H 99 07/24/20 18:20 121/53 L 99 07/24/20 18:18 109/52 L 98 07/24/20 16:03 95 07/24/20 15:45 07/24/20 14:43 127/72 94 07/24/20 11:04 121/72 94 07/24/20 07:38 124/70 92 (1) Closed hip fracture Encounter type: initial encounter Laterality: left Qualified Code(s): S72.002A - Fracture of unspecified part of neck of left femur, initial encounter for closed fracture
--- NOTE | 2020-07-24 20:03 | Anesthesiology Progress Note ---
Date of Service July 24, 2020 Anesthesia Post Procedure Vital Signs Vital Signs: Temp Pulse Pulse Pulse Pulse Resp BP 07/24/20 19:32 98.4 F 99 H 18 07/24/20 19:15 98.6 F 100 H 18 07/24/20 19:00 101 H 18 07/24/20 18:50 98.8 F 105 H 16 07/24/20 18:40 103 H 18 07/24/20 18:30 97 H 16 07/24/20 18:20 92 H 18 07/24/20 18:18 97.3 F L 93 H 18 07/24/20 16:03 98.1 F 84 18 152/77 H 07/24/20 15:45 90 07/24/20 14:43 98.4 F 89 18 07/24/20 11:04 98.8 F 88 20 07/24/20 07:38 98.6 F 86 18 07/24/20 03:21 98.6 F 95 H 16 07/24/20 01:00 95 H 07/23/20 22:41 99.3 F 96 H 20 BP Pulse Ox 07/24/20 19:32 114/68 95 07/24/20 19:15 124/71 94 07/24/20 19:00 123/60 94 07/24/20 18:50 121/65 95 07/24/20 18:40 116/60 98 07/24/20 18:30 144/57 H 99 07/24/20 18:20 121/53 L 99 07/24/20 18:18 109/52 L 98 07/24/20 16:03 95 07/24/20 15:45 07/24/20 14:43 127/72 94 07/24/20 11:04 121/72 94 07/24/20 07:38 124/70 92 07/24/20 03:21 110/65 94 07/24/20 01:00 07/23/20 22:41 122/70 97 Pain Intensity Hip: Pain Intensity: 8 Left Hip: Pain Intensity: 7 Transfer of Care Handoff Completed per policy Notes Mental Status: alert / awake / arousable and participated in evaluation Patient Amnestic to Procedure: Yes Nausea / Vomiting: adequately controlled Pain: adequately controlled Airway Patency, RR, SpO2: stable & adequate BP & HR: stable & adequate Hydration State: stable & adequate Anesthetic Complications: no major complications apparent and Pt Satisfied with anesthetic care
[2020-07-24] MEDS: DOCUSATE SODIUM/SENNA 50/8.6MG TAB PO SCH (20:37)
[2020-07-25] MEDS: SODIUM CHLORIDE 0.9% 1000ML 1,000 ML IV SCH ×3 (00:11→20:22)
[2020-07-25] MEDS: ceFAZolin 1000MG 1,000 MG/7.5 ML SYR IV SCH ×3 (00:17→16:12)
[2020-07-25] MEDS ORDERED: Nursing to Pharmacy Communication SCH (04:00)
--- NOTE | 2020-07-25 05:42 | Electrocardiogram Report ---
Test Reason : Blood Pressure : / mmHG Vent. Rate : 097 BPM Atrial Rate : 097 BPM P-R Int : 130 ms QRS Dur : 066 ms QT Int : 322 ms P-R-T Axes : 043 -26 151 degrees QTc Int : 408 ms Normal sinus rhythm Low voltage QRS Inferior infarct , age undetermined T wave abnormality, consider anterior ischemia Abnormal ECG When compared with ECG of 23-JUL-2020 10:54, Inferior infarct is now Present Confirmed by Isiah Presley ([id number]) on 07/25/2020 5:41:42 AM Referred By: REFERRED SELF Confirmed By:Isiah Presley
[2020-07-25 06:20] LABS: Hematocrit (blood only) 32.3 % (37-47); Hemoglobin 10.8 g/dL (12.0-16.0); Immature Granulocytes # (auto) 0.01 K/uL (0.00-0.02); Immature Granulocytes % (auto) 0.2 %; Lymphocytes # (auto) 0.35 K/uL (1.2-3.4); Lymphocytes % (auto) 6.6 %; Mean Corpuscular Hemoglobin 29.7 pg (25-34); Mean Corpuscular Hgb Conc 33.4 g/dL (32-36); Mean Corpuscular Volume 88.7 fL (80-100); Mean Platelet Volume 10.6 fL (7.4-10.4); Monocytes # (auto) 0.36 K/uL (0.11-0.59); Monocytes % (auto) 6.8 %; Neutrophils # (auto) 4.59 K/uL (1.4-6.5); Neutrophils % (auto) 86.4 %; Platelet Count 168 K/uL (130-400); RDW Coefficient of Variation 13.3 % (11.5-14.5); RDW Standard Deviation 43.2 fL (36.4-46.3); Red Blood Count 3.64 M/uL (4.2-5.4); White Blood Count 5.31 K/uL (4.8-10.8)
[2020-07-25 06:58] LABS: Calcium 7.8 mg/dl (8.5-10.1); Creatinine Clr Calc Pharmacy 57.6 ml/min; Est GFR (African American) 95.8; Est GFR (Non-African American) 82.7; Potassium 4.5 mmol/L (3.5-5.1)
[2020-07-25] MEDS: ENOXAPARIN INJ 40 MG/0.4 ML SYR SQ SCH (07:20)
[2020-07-25 09:35] LABS: Creatine Kinase 2608 U/L (26-192)
--- NOTE | 2020-07-25 12:06 | Hospitalist Progress Note ---
Date of Service July 25, 2020 Assessment & Plan (1) Pre-op evaluation: (2) Closed left hip fracture: 2/2 mechanical fall. S/P left bipolar hemiarthroplasty postop day 1 Pain control PT/OT evaluation (3) Acute renal failure: Resolved (4) Non-traumatic rhabdomyolysis: CK of 7300 on admission. Patient was on the floor for significant time. CK trending down to 2600 today. We will continue IV fluids for today and monitor (5) DVT prophylaxis: Lovenox Full code Admission and Anticipated Discharge Date Admission Date: July 23, 2020 Subjective Patient seen and examined. Report left thigh pain. Denies any fevers, chills, nausea, vomiting Denies any abdominal pain. Able to move bowels since after surgery. Denies any dysuria Physical Exam Constitutional: + well hydrated; no acute distress Eyes: PERRL, conjunctivae normal, anicteric sclerae ENMT: external ear and nose normal, oropharynx normal Respiratory: normal respiratory effort, lungs clear to auscultation Cardiovascular: Rate/Rhythm: regular rate and regular rhythm S1-S2 Gastrointestinal (Abdomen): normal bowel sounds, soft, nontender, no hepatosplenomegaly Musculoskeletal: Able to move lower extremities. Limited exam due to report of pain during MSK examination Neurologic: PERRL, EOMI, accommodation nl, no face palsy, no dysarthria Psychiatric: A+Ox3, euthymic affect Results & Data Results & Data ([facility]) Vital Signs (Past 12 Hours) Vital Signs Temp Pulse Resp BP Pulse Ox 07/25/20 07:00 36.9 C 77 18 113/68 97 07/25/20 03:47 37 C 83 20 112/66 98 07/25/20 00:31 37.2 C 82 20 124/67 97 Laboratory Results Laboratory Results - last 24 hr 07/25/20 07/25/20 07/25/20 05:48 05:48 05:48 WBC 5.31 RBC 3.64 L Hgb 10.8 L Hct 32.3 L MCV 88.7 MCH 29.7 MCHC 33.4 RDW Std Deviation 43.2 RDW Coeff of Praveen 13.3 Plt Count 168 MPV 10.6 H Immature Gran % (Auto) 0.2 Neut % (Auto) 86.4 Lymph % (Auto) 6.6 [place] % (Auto) 6.8 Eos % (Auto) 0.0 Baso % (Auto) 0.0 Neut # (Auto) 4.59 Lymph # (Auto) 0.35 L [place] # (Auto) 0.36 Eos # (Auto) 0.00 Baso # (Auto) 0.00 Immature Gran # (Auto) 0.01 Sodium 143 Potassium 4.5 D Chloride 115 H Carbon Dioxide 24 Anion Gap 4.0 BUN 27 H Creatinine 0.65 Est Cr Clr Drug Dosing 57.6 Est GFR ( Amer) 95.8 Est GFR (Non-Af Amer) 82.7 BUN/Creatinine Ratio 41.0 H Glucose 123 H Calcium 7.8 L Total Creatine Kinase 2608 H Specimen Hemolysis
--- NOTE | 2020-07-25 18:46 | Orthopedic Progress Note ---
Date of Service July 25, 2020 Assessment & Plan (1) Closed hip fracture: Postop day 1 s/p Left hip hemiarthroplasty -ancef x 24, then dc. -DVT ppx: SCDs, TEDs, Lovenox daily -WBAT LLE -PT/OT -am labs as noted. Admission and Anticipated Discharge Date Admission Date: July 23, 2020 Subjective Patient sitting up in bed awake and alert.Patient states that they had her up in the chair today. Complains of pain on her left lateral hip when she is mostly moving around. Denies shortness of breath, chest pain, lightheadedness. Physical Exam Physical Exam: Prevena dressing is clean, dry, and intact. Thigh is soft and nontender. Calves are soft nontender. Neurovascular is intact. Toes are mobile. Leg lengths appear equal. Results & Data ([facility]) Vital Signs (Past 12 Hours) Vital Signs Temp Pulse Pulse Pulse Resp BP Pulse Ox 07/25/20 15:29 83 07/25/20 14:49 37.1 C 86 18 115/75 97 07/25/20 07:00 36.9 C 77 18 113/68 97 Laboratory Results Laboratory Results WBC 5.31 K/uL (4.8-10.8) 07/25/20 05:48 RBC 3.64 M/uL (4.2-5.4) L 07/25/20 05:48 Hgb 10.8 g/dL (12.0-16.0) L 07/25/20 05:48 Hct 32.3 % (37-47) L 07/25/20 05:48 MCV 88.7 fL (80-100) 07/25/20 05:48 MCH 29.7 pg (25-34) 07/25/20 05:48 MCHC 33.4 g/dL (32-36) 07/25/20 05:48 RDW Std Deviation 43.2 fL (36.4-46.3) 07/25/20 05:48 RDW Coeff of Praveen 13.3 % (11.5-14.5) 07/25/20 05:48 Plt Count 168 K/uL (130-400) 07/25/20 05:48 MPV 10.6 fL (7.4-10.4) H 07/25/20 05:48 Immature Gran % (Auto) 0.2 % 07/25/20 05:48 Neut % (Auto) 86.4 % 07/25/20 05:48 Lymph % (Auto) 6.6 % 07/25/20 05:48 [place] % (Auto) 6.8 % 07/25/20 05:48 Eos % (Auto) 0.0 % 07/25/20 05:48 Baso % (Auto) 0.0 % 07/25/20 05:48 Neut # (Auto) 4.59 K/uL (1.4-6.5) 07/25/20 05:48 Lymph # (Auto) 0.35 K/uL (1.2-3.4) L 07/25/20 05:48 [place] # (Auto) 0.36 K/uL (0.11-0.59) 07/25/20 05:48 Eos # (Auto) 0.00 K/uL (0-0.5) 07/25/20 05:48 Baso # (Auto) 0.00 K/uL (0-0.2) 07/25/20 05:48 Immature Gran # (Auto) 0.01 K/uL (0.00-0.02) 07/25/20 05:48 PT 9.7 Seconds (9.0-12.0) 07/24/20 05:47 INR 1.0 (0.9-1.1) 07/24/20 05:47 Sodium 143 mmol/L (136-145) 07/25/20 05:48 Potassium 4.5 mmol/L (3.5-5.1) D 07/25/20 05:48 Chloride 115 mmol/L (98-107) H 07/25/20 05:48 Carbon Dioxide 24 mmol/L (21-32) 07/25/20 05:48 Anion Gap 4.0 (3-11) 07/25/20 05:48 BUN 27 mg/dl (7-18) H 07/25/20 05:48 Creatinine 0.65 mg/dl (0.6-1.2) 07/25/20 05:48 Est Cr Clr Drug Dosing 57.6 ml/min 07/25/20 05:48 Est GFR ( Amer) 95.8 07/25/20 05:48 Est GFR (Non-Af Amer) 82.7 07/25/20 05:48 BUN/Creatinine Ratio 41.0 (10-20) H 07/25/20 05:48 Glucose 123 mg/dl (70-99) H 07/25/20 05:48 Calcium 7.8 mg/dl (8.5-10.1) L 07/25/20 05:48 Total Bilirubin 0.7 mg/dl (0.2-1) 07/23/20 11:26 AST 230 U/L (15-37) H 07/23/20 11:26 ALT 77 U/L (12-78) 07/23/20 11:26 Alkaline Phosphatase 89 U/L (45-117) 07/23/20 11:26 Total Creatine Kinase 2608 U/L (26-192) H 07/25/20 05:48 CK-MB (CK-2) 87.5 ng/ml (0.5-3.6) H 07/23/20 11:26 CK/CKMB % Calc 1.2 (0-3.0) 07/23/20 11:26 Troponin I 0.079 ng/ml (0-0.045) H* 07/24/20 05:47 Total Protein 6.5 gm/dl (6.4-8.2) 07/23/20 11:26 Albumin 3.0 gm/dl (3.4-5.0) L 07/23/20 11:26 Globulin 3.5 gm/dl (2.5-4.0) 07/23/20 11:26 Albumin/Globulin Ratio 0.9 (0.9-2) 07/23/20 11:26 Lipase 147 U/L (73-393) 07/23/20 11:26 Specimen Hemolysis 07/25/20 05:48 Specimen Hemolysis 07/25/20 05:48 Urine Color [place] 07/23/20 10:57 Urine Appearance Cloudy (Clear) A 07/23/20 10:57 Urine pH 5.5 (4.5-7.5) 07/23/20 10:57 Ur Specific [place] 1.020 (1.000-1.030) 07/23/20 10:57 Urine Protein 1+ (Negative) H 07/23/20 10:57 Urine Glucose (UA) Negative (Negative) 07/23/20 10:57 Urine Ketones 1+ (Negative) H 07/23/20 10:57 Urine Blood 3+ (Negative) H 07/23/20 10:57 Urine Nitrite Negative (Negative) 07/23/20 10:57 Urine Bilirubin Negative (Negative) 07/23/20 10:57 Urine Urobilinogen Negative (Negative) 07/23/20 10:57 Ur Leukocyte Esterase 1+ (Negative) H 07/23/20 10:57 Urine WBC (Auto) 10-30 /hpf (0-5) H 07/23/20 10:57 Urine RBC (Auto) 0-4 /hpf (0-4) 07/23/20 10:57 U Hyaline Cast (Auto) 0 /lpf (0-5) 07/23/20 10:57 U Epithel Cells (Auto) 5-10 /lpf (0-5) H 07/23/20 10:57 Urine Bacteria (Auto) 4+ (Negative) H 07/23/20 10:57 COVID-19 Eval Order Covid19 [facility]Now [facility] 07/23/20 14:10 SARS-CoV-2, RNA, NAAT NEGATIVE (NEGATIVE) 07/23/20 14:10 Blood Type A Positive 07/24/20 05:47 Antibody Screen NEGATIVE 07/24/20 05:47 (1) Closed hip fracture Encounter type: initial encounter Laterality: left Qualified Code(s): S72.002A - Fracture of unspecified part of neck of left femur, initial encounter for closed fracture
[2020-07-25] MEDS: DOCUSATE SODIUM/SENNA 50/8.6MG TAB PO SCH (19:52)
[2020-07-26] MEDS: SODIUM CHLORIDE 0.9% 1000ML 1,000 ML IV SCH ×2 (05:43→17:11)
[2020-07-26] MEDS: ENOXAPARIN INJ 40 MG/0.4 ML SYR SQ SCH (07:19)
[2020-07-26 07:44] LABS: Basophils # (auto) 0.01 K/uL (0-0.2); Basophils % (auto) 0.2 %; Eosinophils % (auto) 5.1 %; Hematocrit (blood only) 31.1 % (37-47); Hemoglobin 10.3 g/dL (12.0-16.0); Immature Granulocytes # (auto) 0.06 K/uL (0.00-0.02); Lymphocytes # (auto) 1.37 K/uL (1.2-3.4); Lymphocytes % (auto) 23.3 %; Mean Corpuscular Hemoglobin 29.8 pg (25-34); Mean Corpuscular Hgb Conc 33.1 g/dL (32-36); Mean Corpuscular Volume 89.9 fL (80-100); Mean Platelet Volume 10.3 fL (7.4-10.4); Monocytes # (auto) 0.49 K/uL (0.11-0.59); Monocytes % (auto) 8.3 %; Neutrophils # (auto) 3.66 K/uL (1.4-6.5); Neutrophils % (auto) 62.1 %; Platelet Count 161 K/uL (130-400); RDW Coefficient of Variation 13.4 % (11.5-14.5); RDW Standard Deviation 44.1 fL (36.4-46.3); Red Blood Count 3.46 M/uL (4.2-5.4); White Blood Count 5.89 K/uL (4.8-10.8)
[2020-07-26 08:14] LABS: BUN Creatinine Ratio 31.4 (10-20); Calcium 7.5 mg/dl (8.5-10.1); Creatinine Clr Calc Pharmacy 72.4 ml/min; Est GFR (African American) 100.6; Est GFR (Non-African American) 86.8; Magnesium 2.1 mg/dl (1.8-2.4); Potassium 3.7 mmol/L (3.5-5.1)
[2020-07-26 08:51] LABS: Phosphorus 1.6 mg/dl (2.5-4.9)
--- NOTE | 2020-07-26 11:21 | Hospitalist Progress Note ---
Date of Service July 26, 2020 Assessment & Plan (1) Pre-op evaluation: (2) Closed left hip fracture: 2/2 mechanical fall. S/P left bipolar hemiarthroplasty postop day 2 Pain control PT/OT evaluation noted aircraft manager working on rehab placement (3) Acute renal failure: Resolved Hypophosphatemia today. Replete and monitor UTI Urine culture growing Ecoli Though patient denies urinary symptoms at this time, she is not a very good historian for history prior to admission Will treat with nitrofurantoin (4) Non-traumatic rhabdomyolysis: CK of 7300 on admission. Patient was on the floor for significant time. CK trending down to 2433 today. We will continue IV fluids for today and monitor (5) DVT prophylaxis: Lovenox. Plan to dc on lovenox for 14days Full code Admission and Anticipated Discharge Date Admission Date: July 23, 2020 Subjective Patient seen and examined Complains only of left hip pain Denies any other symptoms Physical Exam Constitutional: + well hydrated; no acute distress Eyes: PERRL, conjunctivae normal, anicteric sclerae ENMT: external ear and nose normal, oropharynx normal Respiratory: normal respiratory effort, lungs clear to auscultation Cardiovascular: Rate/Rhythm: regular rate and regular rhythm S1-S2 Gastrointestinal (Abdomen): normal bowel sounds, soft, nontender, no hepatosplenomegaly Musculoskeletal: Patient has a VAC on without obvious drainage No leg swelling Neurologic: PERRL, EOMI, accommodation nl, no face palsy, no dysarthria Psychiatric: A+Ox3, euthymic affect Results & Data Results & Data ([facility]) Vital Signs (Past 12 Hours) Vital Signs Temp Pulse Pulse Pulse Resp BP Pulse Ox 07/26/20 07:00 37.1 C 79 18 136/78 95 07/26/20 03:44 37.3 C 80 20 136/73 98 07/25/20 23:54 86 Laboratory Results Laboratory Results - last 24 hr 07/26/20 07/26/20 07:27 07:27 WBC 5.89 RBC 3.46 L Hgb 10.3 L Hct 31.1 L MCV 89.9 MCH 29.8 MCHC 33.1 RDW Std Deviation 44.1 RDW Coeff of Praveen 13.4 Plt Count 161 MPV 10.3 Immature Gran % (Auto) 1.0 Neut % (Auto) 62.1 Lymph % (Auto) 23.3 [place] % (Auto) 8.3 Eos % (Auto) 5.1 Baso % (Auto) 0.2 Neut # (Auto) 3.66 Lymph # (Auto) 1.37 [place] # (Auto) 0.49 Eos # (Auto) 0.30 Baso # (Auto) 0.01 Immature Gran # (Auto) 0.06 H Sodium 145 Potassium 3.7 D Chloride 117 H Carbon Dioxide 23 Anion Gap 5.0 BUN 18 Creatinine 0.56 L Est Cr Clr Drug Dosing 72.4 Est GFR ( Amer) 100.6 Est GFR (Non-Af Amer) 86.8 BUN/Creatinine Ratio 31.4 H Glucose 92 Calcium 7.5 L Phosphorus 1.6 L Magnesium 2.1 Total Creatine Kinase 2443 H
[2020-07-26] MEDS: NITROFURANTOIN MONOHYDRATE 100 MG CAP PO SCH ×2 (12:21→21:38)
--- NOTE | 2020-07-26 13:50 | Orthopedic Progress Note ---
Date of Service July 26, 2020 Assessment & Plan (1) Closed hip fracture: Postop day 2 s/p Left hip hemiarthroplasty -ancef x 24, then dc. -DVT ppx: SCDs, TEDs, Lovenox daily -WBAT LLE -PT/OT -am labs as noted. Admission and Anticipated Discharge Date Admission Date: July 23, 2020 Subjective POD 2 Pt sitting up in bed sleeping. Easily awoken. c/o some soreness of the incisional area. Denies SOB,CP,LH. Physical Exam Physical Exam: Prevena vac C/D/I. No overt drainage noted. No erythema around the vac. Calves soft, NT. NV intact. Toes are mobile. Having some ankle discomfort today on the operative leg. No overt swelling. Leg lenghts appear equal. Results & Data ([facility]) Vital Signs (Past 12 Hours) Vital Signs Temp Pulse Pulse Resp BP Pulse Ox 07/26/20 11:00 37.1 C 79 17 147/76 H 96 07/26/20 07:00 37.1 C 79 18 136/78 95 07/26/20 03:44 37.3 C 80 20 136/73 98 Laboratory Results Laboratory Results WBC 5.89 K/uL (4.8-10.8) 07/26/20 07:27 RBC 3.46 M/uL (4.2-5.4) L 07/26/20 07:27 Hgb 10.3 g/dL (12.0-16.0) L 07/26/20 07:27 Hct 31.1 % (37-47) L 07/26/20 07:27 MCV 89.9 fL (80-100) 07/26/20 07:27 MCH 29.8 pg (25-34) 07/26/20 07:27 MCHC 33.1 g/dL (32-36) 07/26/20 07:27 RDW Std Deviation 44.1 fL (36.4-46.3) 07/26/20 07:27 RDW Coeff of Praveen 13.4 % (11.5-14.5) 07/26/20 07:27 Plt Count 161 K/uL (130-400) 07/26/20 07:27 MPV 10.3 fL (7.4-10.4) 07/26/20 07:27 Immature Gran % (Auto) 1.0 % 07/26/20 07:27 Neut % (Auto) 62.1 % 07/26/20 07:27 Lymph % (Auto) 23.3 % 07/26/20 07:27 [place] % (Auto) 8.3 % 07/26/20 07:27 Eos % (Auto) 5.1 % 07/26/20 07:27 Baso % (Auto) 0.2 % 07/26/20 07:27 Neut # (Auto) 3.66 K/uL (1.4-6.5) 07/26/20 07:27 Lymph # (Auto) 1.37 K/uL (1.2-3.4) 07/26/20 07:27 [place] # (Auto) 0.49 K/uL (0.11-0.59) 07/26/20 07:27 Eos # (Auto) 0.30 K/uL (0-0.5) 07/26/20 07:27 Baso # (Auto) 0.01 K/uL (0-0.2) 07/26/20 07:27 Immature Gran # (Auto) 0.06 K/uL (0.00-0.02) H 07/26/20 07:27 PT 9.7 Seconds (9.0-12.0) 07/24/20 05:47 INR 1.0 (0.9-1.1) 07/24/20 05:47 Sodium 145 mmol/L (136-145) 07/26/20 07:27 Potassium 3.7 mmol/L (3.5-5.1) D 07/26/20 07:27 Chloride 117 mmol/L (98-107) H 07/26/20 07:27 Carbon Dioxide 23 mmol/L (21-32) 07/26/20 07:27 Anion Gap 5.0 (3-11) 07/26/20 07:27 BUN 18 mg/dl (7-18) 07/26/20 07:27 Creatinine 0.56 mg/dl (0.6-1.2) L 07/26/20 07:27 Est Cr Clr Drug Dosing 72.4 ml/min 07/26/20 07:27 Est GFR ( Amer) 100.6 07/26/20 07:27 Est GFR (Non-Af Amer) 86.8 07/26/20 07:27 BUN/Creatinine Ratio 31.4 (10-20) H 07/26/20 07:27 Glucose 92 mg/dl (70-99) 07/26/20 07:27 Calcium 7.5 mg/dl (8.5-10.1) L 07/26/20 07:27 Phosphorus 1.6 mg/dl (2.5-4.9) L 07/26/20 07:27 Magnesium 2.1 mg/dl (1.8-2.4) 07/26/20 07:27 Total Bilirubin 0.7 mg/dl (0.2-1) 07/23/20 11:26 AST 230 U/L (15-37) H 07/23/20 11:26 ALT 77 U/L (12-78) 07/23/20 11:26 Alkaline Phosphatase 89 U/L (45-117) 07/23/20 11:26 Total Creatine Kinase 2443 U/L (26-192) H 07/26/20 07:27 CK-MB (CK-2) 87.5 ng/ml (0.5-3.6) H 07/23/20 11:26 CK/CKMB % Calc 1.2 (0-3.0) 07/23/20 11:26 Troponin I 0.079 ng/ml (0-0.045) H* 07/24/20 05:47 Total Protein 6.5 gm/dl (6.4-8.2) 07/23/20 11:26 Albumin 3.0 gm/dl (3.4-5.0) L 07/23/20 11:26 Globulin 3.5 gm/dl (2.5-4.0) 07/23/20 11:26 Albumin/Globulin Ratio 0.9 (0.9-2) 07/23/20 11:26 Lipase 147 U/L (73-393) 07/23/20 11:26 Specimen Hemolysis 07/25/20 05:48 Specimen Hemolysis 07/25/20 05:48 Urine Color [place] 07/23/20 10:57 Urine Appearance Cloudy (Clear) A 07/23/20 10:57 Urine pH 5.5 (4.5-7.5) 07/23/20 10:57 Ur Specific [place] 1.020 (1.000-1.030) 07/23/20 10:57 Urine Protein 1+ (Negative) H 07/23/20 10:57 Urine Glucose (UA) Negative (Negative) 07/23/20 10:57 Urine Ketones 1+ (Negative) H 07/23/20 10:57 Urine Blood 3+ (Negative) H 07/23/20 10:57 Urine Nitrite Negative (Negative) 07/23/20 10:57 Urine Bilirubin Negative (Negative) 07/23/20 10:57 Urine Urobilinogen Negative (Negative) 07/23/20 10:57 Ur Leukocyte Esterase 1+ (Negative) H 07/23/20 10:57 Urine WBC (Auto) 10-30 /hpf (0-5) H 07/23/20 10:57 Urine RBC (Auto) 0-4 /hpf (0-4) 07/23/20 10:57 U Hyaline Cast (Auto) 0 /lpf (0-5) 07/23/20 10:57 U Epithel Cells (Auto) 5-10 /lpf (0-5) H 07/23/20 10:57 Urine Bacteria (Auto) 4+ (Negative) H 07/23/20 10:57 COVID-19 Eval Order Covid19 IDNow [facility] 07/23/20 14:10 SARS-CoV-2, RNA, NAAT NEGATIVE (NEGATIVE) 07/23/20 14:10 Blood Type A Positive 07/24/20 05:47 Antibody Screen NEGATIVE 07/24/20 05:47 (1) Closed hip fracture Encounter type: initial encounter Laterality: left Qualified Code(s): S72.002A - Fracture of unspecified part of neck of left femur, initial encounter for closed fracture
[2020-07-26] MEDS: oxyCODONE HCL IR 5 MG TAB (IMMEDIATE RELEASE) PO PRN (19:37)
[2020-07-26] MEDS: DOCUSATE SODIUM/SENNA 50/8.6MG TAB PO SCH (21:38)
[2020-07-26] MEDS: POT PHOSPHATE MONOBASIC W/ SOD TAB PO SCH (21:38)
[2020-07-27] MEDS: SODIUM CHLORIDE 0.9% 1000ML 1,000 ML IV SCH (02:41)
[2020-07-27 06:28] LABS: Basophils # (auto) 0.01 K/uL (0-0.2); Basophils % (auto) 0.1 %; Eosinophils # (auto) 0.32 K/uL (0-0.5); Eosinophils % (auto) 4.7 %; Hematocrit (blood only) 31.6 % (37-47); Hemoglobin 10.6 g/dL (12.0-16.0); Immature Granulocytes % (auto) 1.5 %; Lymphocytes % (auto) 22.1 %; Mean Corpuscular Hemoglobin 29.9 pg (25-34); Mean Corpuscular Hgb Conc 33.5 g/dL (32-36); Mean Corpuscular Volume 89.3 fL (80-100); Mean Platelet Volume 9.9 fL (7.4-10.4); Monocytes # (auto) 0.72 K/uL (0.11-0.59); Monocytes % (auto) 10.6 %; Neutrophils # (auto) 4.14 K/uL (1.4-6.5); Platelet Count 197 K/uL (130-400); RDW Coefficient of Variation 13.2 % (11.5-14.5); RDW Standard Deviation 43.2 fL (36.4-46.3); Red Blood Count 3.54 M/uL (4.2-5.4); White Blood Count 6.79 K/uL (4.8-10.8)
[2020-07-27 06:55] LABS: BUN Creatinine Ratio 30.7 (10-20); Calcium 7.1 mg/dl (8.5-10.1); Est GFR (African American) 108.2; Est GFR (Non-African American) 93.3; Magnesium 1.8 mg/dl (1.8-2.4); Potassium 3.3 mmol/L (3.5-5.1)
[2020-07-27 06:57] LABS: Phosphorus 2.6 mg/dl (2.5-4.9)
[2020-07-27] MEDS: NITROFURANTOIN MONOHYDRATE 100 MG CAP PO SCH (07:09)
[2020-07-27] MEDS: ENOXAPARIN INJ 40 MG/0.4 ML SYR SQ SCH (07:09)
[2020-07-27] MEDS: POT PHOSPHATE MONOBASIC W/ SOD TAB PO SCH (07:09)
[2020-07-27] MEDS: POTASSIUM ACETATE 10 MEQ in 0.9 % SODIUM CHLORIDE 100 ML IV SCH ×2 (08:42→09:44)
[2020-07-27] MEDS: oxyCODONE HCL IR 5 MG TAB (IMMEDIATE RELEASE) PO PRN (09:17)
--- NOTE | 2020-07-27 09:47 | Hospitalist Progress Note ---
Date of Service July 27, 2020 Assessment & Plan Admission and Anticipated Discharge Date Admission Date: July 23, 2020 Results & Data Results & Data ([facility]) Vital Signs (Past 12 Hours) Vital Signs Temp Pulse Pulse Resp BP Pulse Ox 07/27/20 08:23 37.0 C 83 19 152/78 H 95 07/27/20 04:06 37.3 C 80 16 165/89 H 96 07/27/20 01:00 80 07/26/20 22:11 37.0 C 76 18 150/77 H 96
--- NOTE | 2020-07-27 15:17 | Discharge Summary ---
Date of Service July 27, 2020 Admission HPI Per Admitting Provider 80 yo F found down on floor by her son today (Thu). The patient reports that she tripped and fell on Thursday. She has fractured her left hip and was not able to get up or call for help; she lives alone and functions independently at baseline. She denies having hit her head. She reports having crawled from the laundry room floor where she fell into the kitchen and this took her all day yesterday to accomplish. She reports pain is manageable in her hip unless she is moving around. She reports that she was taking medication for HTN and depression a few years ago but stopped these secondary to cost. She denies taking any medications at this time. She has no known h/o cardiac disease or h/o stroke. She has no known h/o diabetes and is not taking insulin. She reports showering herself, cleaning her own home including vaccuming and laundry on a regular basis and cooking for herself. She is independent. She denies any issues with chest pain or worsening shortness of breath when performing these tasks. Admission Exam Per Admitting Provider CONSTITUTIONAL: WNWD, vitals as above, generally well-appearing EYES: EOMI bilaterally, PERRL, normal conjunctivae, no scleral icterus ENT: external ear and nose normal, partial dentures in place, mucous membranes are dry. NECK: trachea midline RESPIRATORY: clear to auscultation bilaterally, no crackles, rales or wheezes, normal respiratory effort CARDIOVASCULAR: regular rate and rhythm, S1 and 2 heard without murmurs, gallops or rubs, no JVD, no peripheral edema GASTROINTESTINAL: soft, nontender, nondistended, no guarding. MUSCULOSKELETAL: she can wiggle her toes, limited leg strength testing 2/2 pain from fracture. UE strength 5/5 throughout. SKIN: warm and dry, no bruising noted. NEUROLOGIC: CN 2-12 grossly intact, no sensory deficit, normal cognition, normal speech, no gross focal deficits. PSYCHIATRIC: alert cooperative and answering all questions appropriately. Principal Diagnosis The surgical grade yesterday fall Closed left hip fracture going okay Status post left hemiarthroplasty Acute kidney injury Urinary tract infection Rhabdomyolysis Discharge Exam Constitutional + well hydrated; no acute distress Eyes PERRL, conjunctivae normal, anicteric sclerae ENMT external ear and nose normal, oropharynx normal Respiratory normal respiratory effort, lungs clear to auscultation Cardiovascular Rate/Rhythm: regular rate and regular rhythm S1-S2 Gastrointestinal (Abdomen) normal bowel sounds, soft, nontender, no hepatosplenomegaly Skin Patient has a VAC on without obvious drainage No leg swelling Neurologic PERRL, EOMI, accommodation nl, no face palsy, no dysarthria Psychiatric A+Ox3, euthymic affect Discharge Data Allergies Allergy/AdvReac Type Severity Reaction Status Date / Time No Known Allergies Allergy Unverified 07/23/20 11:32 Consultations 07/23/20 12:30 ED Decision to Admit Stat 07/23/20 17:28 Consult Anesthesiology Routine Consult Case Management - Discharge Planning Routine Consult Orthopedic Surgery Routine 07/24/20 19:15 Consult Case Management - Discharge Planning Routine Procedures Performed Operation Date: 07/24/20 09:15 Actual Procedures p Left Bipolar Freddie Arthroplasty Hip Prosthesis, Uncemented(Left) - Marco Barnard DO Hospital Course (1) Pre-op evaluation: (2) Closed left hip fracture: 2/2 mechanical fall. Patient was evaluated by orthopedic surgeon S/P left bipolar hemiarthroplasty postop day 3 Discharged on some tramadol for pain control Patient evaluated by PT/OT Discharge on Lovenox subcu to 4 weeks for DVT prophylaxis (3) Acute renal failure: Resolved Creatinine was 1.38 on admission, now 0.45 (4) Non-traumatic rhabdomyolysis: CK of 7300 on admission. Patient was on the floor for significant time. CK trended down with IV fluids (5) UTI (urinary tract infection): Urine culture growing Ecoli Discharged on nitrofurantoin to complete the treatment Total Time Total Time Spent Total Time Spent (In Minutes): 60 Total Time Includes: Examination of the Patient, Discharge Planning and Medication Reconciliation Discharge Plan Discharge Items Patient Disposition: Transfer Inpatient Rehab Fac Reason For Visit: LEFT HIP FRACTURE, NONTRAUMATIC RHABDMYOLYSIS Discharge Diagnosis: Mechanical fall Closed left hip fracture S/P left hemiarthroplasty Acute kidney injury Rhabdomyolysis Urinary tract infection Activity: Per Instructions section Weightbearing: Left weightbearing Weightbearing Comment: as tolerated with walker Non-emergency contact: Primary Care Provider and Surgeon Call non-emergency contact if: your pain is not controlled, your temperature is above 101.5, your wound has increased redness and your wound has increased drainage Follow-up/Referrals: Guido Smart MD [Primary Care Provider] - Diet: Regular Diet Texture: Easy to Chew Cleo Attending Provider Instructions: Ms Scott You came to the hospital after a fall and found to have left hip fracture. You had surgery for this. You were also treated for urinary tract infection and rhabdomyolysis. You are being discharged to rehab for continued recovery. Continue lovenox injection for 4 weeks. Please take nitrofurantoin for another 4 days to complete treatment. Please follow the instructions by the Orthopedic surgeon detailed below. It was a pleasure taking care of you. Cleo Faro Dealer Provider Instructions: ACTIVITY RECOMMENDATIONS: SELF CARE INSTRUCTIONS AFTER L HIP HEMIARTHROPLASTY Until the incision and soft tissues around your hip have healed, there is a possibility that the hip prosthesis could dislocate. A. Observe the following precautions to prevent dislocation: 1. Don't bend your hip greater than 90 degrees. 2. Avoid crossing your legs or ankles while standing or lying. 3. Sit with your feet placed 6 inches apart. 4. When sitting, keep your knees below your hips. Sit on a firm surface, avoid deep, soft chairs and couches. Use an elevated toilet seat in the bathroom. 5. Don't bend over at the waist. Use a long handled shoehorn and a sock aid to help you put on your shoes and socks. A forensic science technician can help you garbage pick up worker objects that are too high or too low to reach. 6. Keep car riding to a minimum for at least one month after surgery. B. Your balance may be shaky for a while. Use crutches or a walker until directed by your doctor. C. Use hand rails when walking on stairs. D. Wear low heeled shoes with non-slip soles. E. Be sure that your floors are free of things that could trip you - throw rugs, electrical cords, small objects. Avoid wet and waxed floors, especially with crutches and canes. F. Try to walk several times a day with rest periods between. G. Continue with all the exercises taught to you in the hospital. Again, make walking a part of your daily routine. SPECIAL CARE INSTRUCTIONS: VERY IMPORTANT TO READ AND REVIEW A. You may still be at risk for phlebitis and blood clots. 1. Wear surgical stockings (GINA hose) for 2 weeks after surgery to improve circulation and reduce swelling. 2. Take Lovenox (Enoxaparin) 40 mg injectable daily for 4 weeks or as your physician dictates. B. You must take antibiotics before having dental work, bladder, bowel and other surgery. Your doctor will provide you with a permanent card to carry describing precautions. C. Call [facility] if you have a fever, redness or swelling around the incision, cloudy drainage from incision, or sudden increase in pain in your hip, not relieved by your regular pain medication. D. Please call the office at if you have any concerns or questio ns about your operation or recovery. * YOU MAY SHOWER, NO TUB BATHS UNTIL CLEARED BY YOUR DOCTOR. * WEAR GINA HOSE 20 HOURS PER DAY FOR 2 WEEKS. * YOU SHOULD USE A WALKER OR CRUTCHES FOR 2-4 WEEKS. THIS WILL HELP PREVENT STRAIN ON YOUR HIP MUSCLE AND ALLOW IT TO HEAL PROPERLY. YOU MAY WEAN TO A CANE TOLERATED. * MOST PATIENTS WILL HAVE HOME NURSING FOR THERAPY. IF YOU DECIDE TO DO OUTPATIENT PHYSICAL THERAPY, PLEASE SCHEDULE THIS 3 TIMES PER WEEK. * Prevena- This is a large suction dressing covering your incision. This will help pull any excess drainage from the wound and allow your incision to heal properly. You may shower with this if you can keep the unit outside of the shower. If any bleeding or leakage is noted please call your doctor's office. This will remain on your incision for 7 days and then should be removed. This can be done yourself or by the home nursing staff if applicable. The entire unit is disposable once removed. Once removed, keep incision clean and dry. If redness or drainage is noted, please call your surgeon. . FOLLOW UP VISIT: If appointment is not already scheduled: Please call [facility] to make a follow-up appointment for 2 weeks after your surgery at . Pending Studies at Discharge: No Stand-Alone Forms: My [facility] Skilled Items Patient informed of condition?: Yes DNR: No Discharge Level of Care: Acute rehab Communicable Disease: No Discharge Prognosis: Stable Lines: None Urinary Catheter: No Medications and DC Order Prescriptions: New nitrofurantoin monohyd/m-cryst 100 mg Capsule 100 mg PO BID 4 Days Qty: 8 RF: 0 acetaminophen 325 mg Tablet 650 mg PO Q4H PRN (Reason: pain) Qty: 30 RF: 0 tramadol 50 mg Tablet 50 mg PO Q6H PRN (Reason: severe pain (scale score 7-10)) Qty: 14 RF: 0 polyethylene glycol 3350 [Miralax] 17 gram Powder In Packet 17 g PO DAILY PRN (Reason: constipation) Qty: 30 RF: 0 sennosides-docusate sodium [Senokot-S] 8.6-50 mg Tablet 2 tab PO HS Qty: 30 RF: 0 enoxaparin [Lovenox] 40 mg/0.4 mL syringe 40 mg subcut DAILY 28 Days Qty: 11.2 RF: 0 Discharge Orders: Discharge Order (Routine); Ordered 07/27/20 Ordered By: Sarah Beth Mckinney Admission Data Admit Date/Time: 07/23/20 15:53 Attending Provider: Sarah Beth Mckinney I. Admit Provider: Wendy Oakley Primary Care Provider: Guido Smart Other Providers: Wendy Oakley ; Raciel Perez ; Jamison Raza ; Tiffany Zaldivar ; [facility] Other Interventions: Discharge Summary Assessment (RN) Last Done: 07/27/20 11:12
== END 2020-07-27 12:40 | DRG 522 ==
LOC: ED 10:26 → SUATTDRO 15:53 → 2W 15:53